=== PATIENT | female | born 1955 | race African-American/Black ===

== ENCOUNTER 2020-08-19 13:33 | Inpatient (IN) | payer OTHER, SELFPAY ==
[2020-08-19] VITALS (10 sets, daily range): BP systolic 113–210; BP diastolic 81–112; PULSE 68–90; RESP 16–22; TEMP 36.8; O2SAT 95–100; BMI 27.2
--- NOTE | 2020-08-19 | MR_ITS ---
EXAMINATION: MR ABDOMEN WITHOUT CONTRAST/MRCP CLINICAL INFORMATION: Distended edematous gallbladder with sludge and gallstones consistent with an acute cholecystitis. Dilatation of the bile duct to 1.2 cm on prior imaging. MRCP was suggested for follow up. COMPARISON: Ultrasound of abdomen 08/19/2020. CT scan abdomen and pelvis 08/19/2020. TECHNIQUE: An MRI scan of the abdomen was performed using multiple imaging sequences and imaging planes. As per the MRCP protocol, heavily T2-weighted 3-D high-resolution MRCP sequences were obtained in the coronal plane along with thin and thick slab coronal images and coronal MIP reconstructions. FINDINGS: Liver: Liver normal size and signal. No focal cystic or solid mass. Hepatic and portal veins patent. Gallbladder, Biliary Tree: The gallbladder is edematous and distended. Filling defects seen dependent gallbladder consistent with previous identified sludge and stone. The common bile duct is dilated to a diameter about 1.2 cm at the dick hepatis and remains dilated to the ampulla. No filling defects seen in the bile duct. Pancreas: No pancreatic mass or dilatation. No inflammation. The pancreatic duct is slightly prominent measuring about 2-3 mm at the head and body of the pancreas. Spleen: Normal size and appearance. Splenic vein patent. Adrenal Glands and Kidneys: Adrenal glands normal. Kidneys bilaterally symmetric in size and function. No focal mass, hydronephrosis, or perinephric stranding. Bowel Loops: Grossly within normal limits. Lymphovascular Structures: Abdominal aorta normal in caliber. No periaortic collections. No abdominal adenopathy or free fluid collection. Bones: Within normal limits to the extent included. MR/MR MRCP IMPRESSION: 1. Edematous distended gallbladder consistent with acute cholecystitis. Filling defects of sludge and stones as previously seen on prior studies. 2. Dilated CBD to a diameter of 1.2 cm. No filling defects in the bile ducts. 3. Mild prominence of the pancreatic duct. No pancreatic mass or inflammation.
--- NOTE | 2020-08-19 13:49 | ECG_ITS ---
Test Reason : ABD PAIN Blood Pressure : / mmHG Vent. Rate : 084 BPM Atrial Rate : 084 BPM P-R Int : 138 ms QRS Dur : 076 ms QT Int : 356 ms P-R-T Axes : 060 -02 000 degrees QTc Int : 420 ms Normal sinus rhythm Nonspecific ST and T wave abnormality Abnormal ECG No previous ECGs available Referred By: Estefani Dorsey Electronically Signed By:CHRISTINA RUANO MD
--- NOTE | 2020-08-19 13:50 | US_ITS ---
EXAMINATION: US ABDOMEN COMPLETE CLINICAL INFORMATION: Abdominal pain and nausea. COMPARISON: None TECHNIQUE: Real-time imaging of the abdominal viscera. FINDINGS: PANCREAS: Not well visualized due to bowel gas ABDOMINAL AORTA: The proximal, mid, and distal segments are normal in caliber. INFERIOR VENA CAVA: Visualized portions are normal. LIVER: Liver echotexture is normal. No focal liver lesion is seen. There is mild intrahepatic biliary duct dilatation. GALLBLADDER: The gallbladder is slightly enlarged measuring 11 cm in length. There is sludge and small gallstones seen in the gallbladder. Gallbladder wall appears thickened and edematous. Gallbladder wall measures 0.9 cm. The instrument technologist reports the patient is tender over the gallbladder. COMMON BILE DUCT: Normal in caliber measuring 1 cm in diameter. RIGHT KIDNEY: Normal. No hydronephrosis. No renal calculi or focal parenchymal lesions. The kidney measures 10.6 cm in maximum dimension. LEFT KIDNEY: Normal. No hydronephrosis. No renal calculi or focal parenchymal lesions. The kidney measures 12.6 cm in maximum dimension. SPLEEN: Normal. The spleen measures 9.5 cm in maximum dimension. FREE FLUID: None. US/US abdomen complete IMPRESSION: Distended gallbladder with gallstones and sludge. Thickened edematous gallbladder wall. Ultrasound appearance is concerning for acute cholecystitis. Dilated intra and extrahepatic bile ducts. Limited visualization of the pancreas.
--- NOTE | 2020-08-19 13:52 | ED.ABDPAIN ---
HPI - Abdominal Pain General Chief Complaint: Abdominal Pain Stated Complaint: ABD PAIN Time Seen by Provider: 08/19/20 13:47 Source: patient and EMS Mode of arrival: EMS History of Present Illness HPI narrative: 64-year-old female with a past medical history of arthritis, gastric bypass, presenting to the ED complaining of epigastric/upper abdominal pain since Wednesday with associated nausea. Denies fever, chills, vomiting, diarrhea, constipation, dysuria/hematuria MD elicited complaint: abdominal pain Related Data Allergies Allergy/AdvReac Type Severity Reaction Status Date / Time acetaminophen [From Percocet] Allergy Mild nausea, Verified 08/19/20 13:48 headache, dizzy oxycodone [From Percocet] Allergy Mild nausea, Verified 08/19/20 13:48 headache, dizzy Review of Systems Review of Systems Constitutional: No Weight loss, No Fever, No Chills Cardiovascular: No Chest Pain, No SOB Respiratory: No Cough, No Sputum, No Dyspnea Gastrointestinal: + Nausea, No Vomiting, No Diarrhea, No Constipation, + Abdominal pain Genitourinary: No irregular bleeding, No Dysuria, No Urinary Frequency, No Hematuria, No Flank Pain, No Urinary Flow Changes Musculoskeletal: No joint pain, No Myalgias, No Joint Swelling Skin: No Skin Lesions, No rash Neuro: No Weakness, No Headache Yes all other systems are reviewed and are negative Physical Exam Vital Signs: Vital Signs: Last Vital Signs Temp 98.2 F 08/19/20 13:50 Pulse 79 08/19/20 13:50 Resp 16 08/19/20 16:16 BP 176/105 H 08/19/20 13:50 Pulse Ox 98 08/19/20 13:50 Body Mass Index 27.2 Const: General: cooperative and healthy appearing Orientation/consciousness: patient oriented x3 Limitations: no limitations HENMT: Head: Yes normal to inspection Ears: hearing grossly normal bilaterally General nose exam: Normal external nose present Face and sinus: Yes normal facial exam Eyes: General: appearance normal, both eyes and all related structures EOM: EOMs intact bilaterally Neck: Neck: Yes normal visual inspection and Yes no meningeal signs Resp: Effort & Inspection: normal respiratory effort Cardio: Rate: regular rate GI: Inspection: Yes normal to inspection Palpation (GI): Soft to palpation, Tenderness to palpation present (GI) in the epigastrum, in the LUQ and in the RUQ, no guarding and not rigid : General: Yes no CVA tenderness Back/Spine/Pelvis: Back: no CVA tenderness Skin: Rashes: no rashes Wounds: no wounds Neuro: General: patient oriented x3 and no meningeal signs Extrem: General: Yes normal to inspection Course Course Course Narrative: Leukocytosis notable 21.8. Empiric IV Zosyn ordered UA infected 1605- ultrasound showing distended gallbladder with gallstones and sludge. Thickened edematous gallbladder wall. Ultrasound appearance is concerning for acute cholecystitis. Dilated intra and extrahepatic bile ducts. > surgery, Dr. Gallegos consulted, recommended CT for further evaluation Lactic negative. 1700--ED care transfer to [facility] pending remaining labs, CT AP and admission MDM - Abdominal Pain MDM Narrative Medical decision making narrative: 64-year-old female with a past medical history of arthritis, gastric bypass, presenting to the ED complaining of epigastric/upper abdominal pain since Wednesday with associated nausea On exam hypertensive, appears in pain, physical exam as above. Concern for pancreatitis/cholecystitis/cholelithiasis vs splenic abnormality. Rule out atypical ACS. Lower concern for diverticulitis/appendicitis or renal stone Plan: Labs, UA, abdomen ultrasound, re-evaluate Lab Data Result diagrams: 08/19/20 14:28 08/19/20 15:50 Labs: Lab Results 08/19/20 08/19/20 08/19/20 Range/Units 14:28 14:29 15:49 WBC 21.8 H (4.8-10.8) X10*3/uL RBC 4.35 (4.20-5.50) X10*6/uL Hgb 13.2 (12.0-16.0) g/dl Hct 39.4 (37-47) % MCV 90.6 (80-98) fL MCH 30.3 (27.0-33.0) pg MCHC 33.5 (31.0-35.0) g/dl RDW 13.2 (11.0-16.0) % Plt Count 94 L (160-400) X10*3/uL MPV 12.0 (9.4-12.3) fL Immature Gran % (Auto) 0.6 H (0.0-0.4) % Neut % (Auto) 93.8 H (45-73) % Lymph % (Auto) 3.0 L (20-40) % [place] % (Auto) 2.5 (2-11) % Eos % (Auto) 0.0 (0-4) % Baso % (Auto) 0.1 (0-2) % Lymph # (Auto) 0.7 L (1.2-4.9) X10*3/uL [place] # (Auto) 0.5 (0.1-1.2) X10*3/uL Eos # (Auto) 0.0 (0.0-0.4) X10*3/uL Baso # (Auto) 0.0 (0.0-0.2) X10*3/uL Abs Immat Gran (auto) 0.14 H (0.00-0.03) X10*3/uL Absolute Neuts (auto) 20.4 H (2.0-8.3) X10*3/uL Absolute Nucleated RBC 0.000 (0.0-0.012) X10*3/uL Nucleated RBC % (auto) 0.0 (0.0-0.2) /100WBC Smear Tech's Comments VERIFIED Sodium (135-145) mmol/L Potassium (3.3-5.1) mmol/L Chloride (96-108) mmol/L Carbon Dioxide (22-29) mmol/L Anion Gap (12-20) BUN (9-16) mg/dL Creatinine (0.5-1.4) mg/dL Estim Creat Clear Calc Estimated GFR Random Glucose (60-115) mg/dL Lactic Acid (0.5-2.0) mmol/L Calcium (8.4-10.2) mg/dL Magnesium (1.6-2.6) mg/dL Total Bilirubin (0.0-1.0) mg/dL Direct Bilirubin (0.0-0.5) mg/dL AST (5-31) U/L ALT (0-31) U/L Alkaline Phosphatase (39-117) U/L Troponin I High Sens (<3.5-17.0) ng/L Total Protein (6.5-8.0) g/dL Albumin (3.5-5.0) g/dL Lipase 4 L (8-78) U/L Urine Color CLARISSA Urine Appearance CLOUDY Urine pH 7.5 (5.0-8.0) Ur Specific [place] 1.015 (1.005-1.025) Urine Protein TRACE (NEG-TRACE) MG/DL Urine Glucose (UA) NEG (NEG) MG/DL Urine Ketones 40 (NEG) MG/DL Urine Blood TRACE (NEG) Urine Nitrite POS H (NEG) Ur Leukocyte Esterase TRACE H (NEG) Urine RBC 0-2 (0) /HPF Urine WBC 10-14 H (0-4) /HPF Ur Squamous Epith Cells 2+ /LPF Urine Bacteria 4+ /LPF 08/19/20 08/19/20 08/19/20 Range/Units 15:50 15:50 15:50 WBC (4.8-10.8) X10*3/uL RBC (4.20-5.50) X10*6/uL Hgb (12.0-16.0) g/dl Hct (37-47) % MCV (80-98) fL MCH (27.0-33.0) pg MCHC (31.0-35.0) g/dl RDW (11.0-16.0) % Plt Count (160-400) X10*3/uL MPV (9.4-12.3) fL Immature Gran % (Auto) (0.0-0.4) % Neut % (Auto) (45-73) % Lymph % (Auto) (20-40) % [place] % (Auto) (2-11) % Eos % (Auto) (0-4) % Baso % (Auto) (0-2) % Lymph # (Auto) (1.2-4.9) X10*3/uL [place] # (Auto) (0.1-1.2) X10*3/uL Eos # (Auto) (0.0-0.4) X10*3/uL Baso # (Auto) (0.0-0.2) X10*3/uL Abs Immat Gran (auto) (0.00-0.03) X10*3/uL Absolute Neuts (auto) (2.0-8.3) X10*3/uL Absolute Nucleated RBC (0.0-0.012) X10*3/uL Nucleated RBC % (auto) (0.0-0.2) /100WBC Smear Tech's Comments Sodium 145 (135-145) mmol/L Potassium 1.9 L* (3.3-5.1) mmol/L Chloride 122 H (96-108) mmol/L Carbon Dioxide 17 L (22-29) mmol/L Anion Gap 8 L (12-20) BUN 10 (9-16) mg/dL Creatinine 0.48 L (0.5-1.4) mg/dL Estim Creat Clear Calc 137.5 Estimated GFR > 60 Random Glucose 56 L* (60-115) mg/dL Lactic Acid 0.6 (0.5-2.0) mmol/L Calcium 4.9 L* (8.4-10.2) mg/dL Magnesium 1.2 L* (1.6-2.6) mg/dL Total Bilirubin 2.8 H (0.0-1.0) mg/dL Direct Bilirubin 2.4 H (0.0-0.5) mg/dL AST 154 H (5-31) U/L ALT 184 H (0-31) U/L Alkaline Phosphatase 126 H (39-117) U/L Troponin I High Sens < 3.5 (<3.5-17.0) ng/L Total Protein 3.9 L (6.5-8.0) g/dL Albumin 2.1 L (3.5-5.0) g/dL Lipase (8-78) U/L Urine Color Urine Appearance Urine pH (5.0-8.0) Ur Specific [place] (1.005-1.025) Urine Protein (NEG-TRACE) MG/DL Urine Glucose (UA) (NEG) MG/DL Urine Ketones (NEG) MG/DL Urine Blood (NEG) Urine Nitrite (NEG) Ur Leukocyte Esterase (NEG) Urine RBC (0) /HPF Urine WBC (0-4) /HPF Ur Squamous Epith Cells /LPF Urine Bacteria /LPF Discharge Plan Discharge Clinical Impression: Acute cholecystitis, Acute UTI Patient Disposition: Admitted As Inpatient [facility] Past Medical History Attestation statement: The following information was validated with the patient. Medical History (Updated 08/19/20 @ 16:09 by [facility] Larson) Arthritis Surgical History (Updated 08/19/20 @ 13:51 by Tami Beyer) H/O gastric bypass Social History Social History Alcohol intake: never Smoking Status: Never smoker Use of substances other than those prescribed or required for medical reasons: No Advance Directives: No Advance Directives Information Provided: No
[2020-08-19] MEDS: Magnesium Hydrox/Alum Hydrox 30 ML ORAL.SUSP PO (14:31)
[2020-08-19] MEDS: Famotidine/PF 20 MG/2 ML VIAL IVPUSH (14:31)
[2020-08-19] MEDS: 0.9 % Sodium Chloride 1,000 ML 999 ML IVCONT ×2 (14:31→16:17)
[2020-08-19 14:35] LABS: Basophils Percent Auto 0.1 % (0-2); Hematocrit 39.4 % (37-47); Hemoglobin 13.2 g/dl (12.0-16.0); Imm Gran Abs Auto 0.14 X10*3/uL (0.00-0.03); Imm Gran Pct Auto 0.6 % (0.0-0.4); Lymphocytes Absolute Auto 0.7 X10*3/uL (1.2-4.9); MANUAL DIFF FLAG SCAN; Mean Corpuscular HGB Conc 33.5 g/dl (31.0-35.0); Mean Corpuscular Hemoglobin 30.3 pg (27.0-33.0); Mean Corpuscular Volume 90.6 fL (80-98); Monocytes Absolute Auto 0.5 X10*3/uL (0.1-1.2); Monocytes Percent Auto 2.5 % (2-11); Neutrophils Absolute Auto 20.4 X10*3/uL (2.0-8.3); Neutrophils Percent Auto 93.8 % (45-73); Red Blood Count 4.35 X10*6/uL (4.20-5.50); Red Cell Distribution Width 13.2 % (11.0-16.0); SCAN SMEAR FLAG 1; White Blood Count 21.8 X10*3/uL (4.8-10.8)
[2020-08-19 14:38] LABS: Glucose Urine UA NEG (NEG); Leukocyte Esterase Urine TRACE (NEG); Nitrite Urine POS (NEG); PH 7.5 (5.0-8.0); Specific Gravity - Urine 1.015 (1.005-1.025); UACC Culture Trigger YES; Urine Blood TRACE (NEG); Urine Ketones 40 MG/DL (NEG); Urine Protein TRACE MG/DL (NEG-TRACE)
[2020-08-19 14:44] LABS: Appearance Urine CLOUDY; Color Urine AMBER
[2020-08-19 14:45] LABS: Bacteria Urine 4+ /LPF; RBC Urine 0-2 /HPF (0); Squamous Epithelial Cell Urine 2+ /LPF
[2020-08-19 15:19] LABS: Platelet Count 94 X10*3/uL (160-400)
[2020-08-19 15:20] LABS: SLIDE REVIEW VERIFIED
--- NOTE | 2020-08-19 16:05 | CT_ITS ---
EXAMINATION: CT ABDOMEN AND PELVIS WITH CONTRAST CLINICAL INFORMATION: Dilated ducts. Acute cholecystitis. COMPARISON: Ultrasound of abdomen today TECHNIQUE: Multidetector volumetric images were obtained from the superior aspect of the liver through the pubic symphysis following administration 85 mL of Omnipaque 350 intravenous contrast. Sagittal and coronal reformatted images were obtained on the technologist's workstation. Oral contrast: No This CT examination was performed using dose optimization techniques as appropriate, variously including the following: *Automated exposure control *Adjustment of mA and/or kV according to patient size (this includes techniques or standardized protocols for targeted exams where dose is matched to indication/reason for exam; i.e. extremities or head) *Use of iterative reconstruction technique DLP: 670 mGy-cm FINDINGS: LUNG BASES: The visualized lung bases are unremarkable. LIVER, GALLBLADDER, AND BILIARY TREE: The liver is normal in size, shape, and attenuation. No focal hepatic lesion or biliary ductal dilatation is present. The gallbladder is distended. The wall of the gallbladder is edematous and thickened. Small volume of high density material layering dependently consistent with sludge. There is a small calcified gallstone in the sludge. Findings consistent with an acute cholecystitis. The extrahepatic CBD is dilated to a diameter of 1.2 cm. This continues down into the head of the pancreas. No calcified stone seen in the bile ducts. PANCREAS: Slight dilatation of the pancreatic duct to about 2 mm at the head of the pancreas. No inflammation of the pancreas. No pancreatic mass. SPLEEN: Unremarkable. ADRENAL GLANDS: Unremarkable. KIDNEYS AND URETERS: The kidneys are normal in size, shape, and attenuation. No hydronephrosis, hydroureter, or calculi seen. No perinephric stranding. BLADDER: Unremarkable. GASTROINTESTINAL TRACT: There are multiple scattered diverticula of the colon. There is no diverticulitis. There is no bowel wall thickening /edema. There is no bowel obstruction. There is a moderate volume of stool in the colon. The appendix is normal . Status post gastric bypass surgery. No acute change of the stomach or small bowel. There is no hiatal hernia. ABDOMINAL WALL: No significant hernia is appreciated. LYMPH NODES: Normal. VASCULAR: Scattered vascular calcifications of aorta and iliac arteries. There is no aneurysm. PELVIC VISCERA: Unremarkable. OSSEOUS STRUCTURES: Multilevel degenerative spondylosis of the spine. CT/CT abdomen pelvis w con IMPRESSION: 1. Distended edematous gallbladder with sludge and gallstones consistent with an acute cholecystitis. There is dilatation of the CBD to a diameter of 1.2 cm. No calcified stone seen in the bile ducts. MRCP may be helpful for further evaluation. 2. Slight dilatation of the pancreatic duct to 2 mm patellar edema or mass of the pancreas. 3. Status post gastric bypass surgery. 4. Diverticulosis of the colon. No acute abnormality of the bowel.
[2020-08-19] MEDS: Piperacillin Sodium/Tazobactam 3.375 GM in 0.9 % Sodium Chloride 50 ML IV ×2 (16:07→22:18)
[2020-08-19] MEDS: Morphine Sulfate 4 MG/ML CARTRIDGE 2 MG IVPUSH (16:16)
[2020-08-19 16:19] LABS: Lactic Acid 0.6 mmol/L (0.5-2.0)
[2020-08-19 16:23] LABS: Lipase 4 U/L (8-78)
[2020-08-19 16:27] LABS: Troponin-I High Sensitivity < 3.5 ng/L (<3.5-17.0)
[2020-08-19 16:54] LABS: Alanine Aminotransferase 184 U/L (0-31); Albumin Level 2.1 g/dL (3.5-5.0); Alkaline Phosphatase 126 U/L (39-117); Anion Gap 8 (12-20); Aspartate Amino Transferase 154 U/L (5-31); Bilirubin Direct 2.4 mg/dL (0.0-0.5); Bilirubin Total 2.8 mg/dL (0.0-1.0); Blood Urea Nitrogen 10 mg/dL (9-16); Calcium 4.9 mg/dL (8.4-10.2); Carbon Dioxide 17 mmol/L (22-29); Chloride 122 mmol/L (96-108); Creatinine Clr Calc Pharmacy 137.5; Estimated Glomerular Filt Rate > 60; Glucose Random 56 mg/dL (60-115); Magnesium 1.2 mg/dL (1.6-2.6); Potassium 1.9 mmol/L (3.3-5.1); Sodium 145 mmol/L (135-145); Total Protein 3.9 g/dL (6.5-8.0)
[2020-08-19] MEDS: iohexoL 350 MG/ML 100 ML INFUS..BTL IV (17:11)
--- NOTE | 2020-08-19 17:39 | P.HPGS_ITS ---
History of Present Illness History of Present Illness Date of Service: 08/20/20 Chief complaint: Acute cholecystitis elevated LFTs Narrative: Evelyne Wahl is a 64 year old female who says she has been having pain on the right side of her abdomen since Wednesday which is about 3 days ago. S he says this had persisted over the weekend so she decided to come to the ED today. She describes having some nausea at home but denies any vomitting. She denies any similar episodes in the past. She denies any fever or chills. She had imaging studies in the ED showing acute cholecysititis. She seems to be otherwise healthy. She denies medical problems except for arthritis. She says she had gastric bypass surgery in [facility] about 12 years ago and says she may have lost about 120 lbs that time. Review of Systems Constitutional: Constitutional: Denies chills and Denies fever(s) Cardiovascular: Cardiovascular: Denies chest pain, Denies dyspnea and Denies dyspnea on exertion Respiratory: Respiratory: Denies cough, Denies dyspnea and Denies dyspnea on exertion Gastrointestinal: Gastrointestinal: Denies hematochezia and Denies change in bowel habits Genitourinary: Genitourinary: Denies hematuria Musculoskeletal: Musculoskeletal: Denies back pain and Denies limited range of motion Neurologic: Denies focal weakness and Denies convulsions Psychiatric: Psychiatric: Denies depression and Denies mood swings PMFSH Past Medical History Medical History Arthritis Surgical History Surgical History H/O gastric bypass H/O total knee replacement Hx of tubal ligation Social History Social History Alcohol intake: never Smoking Status: Never smoker Use of substances other than those prescribed or required for medical reasons: No Advance Directives: No Advance Directives Information Provided: No Meds Allergies Allergy/AdvReac Type Severity Reaction Status Date / Time acetaminophen [From Percocet] Allergy Mild nausea, Verified 08/19/20 13:48 headache, dizzy oxycodone [From Percocet] Allergy Mild nausea, Verified 08/19/20 13:48 headache, dizzy Home Medications Medication Instructions Recorded Confirmed Type gabapentin 1 cap PO TID 08/19/20 08/19/20 History meloxicam 1 tab PO DAILY 08/19/20 08/19/20 History Physical Exam Vital Signs: Vital Signs: Last Vital Signs Temp 98.2 F 08/19/20 13:50 Pulse 79 08/19/20 13:50 Resp 16 08/19/20 16:16 BP 176/105 H 08/19/20 13:50 Pulse Ox 98 08/19/20 13:50 Body Mass Index 27.2 Const: General: comfortable and no acute distress Orientation/consciousness: patient oriented x3 Neck: Neck: Yes no lymphadenopathy Resp: Auscultation: clear to auscultation bilaterally Cardio: Rhythm: regular rhythm GI: Other: some tenderness on the RUQ, no guarding or tenderness Palpation (GI): Soft to palpation, nontender and no guarding Neuro: General: patient oriented x3 Results Results Labs: Short CBC 08/19/20 Range/Units 14:28 WBC 21.8 H (4.8-10.8) X10*3/uL Hgb 13.2 (12.0-16.0) g/dl Hct 39.4 (37-47) % Plt Count 94 L (160-400) X10*3/uL BMP 08/19/20 15:50 Sodium 145 Potassium 1.9 L* Chloride 122 H Carbon Dioxide 17 L BUN 10 Creatinine 0.48 L Calcium 4.9 L* Liver Function 08/19/20 Range/Units 15:50 Total Bilirubin 2.8 H (0.0-1.0) mg/dL Direct Bilirubin 2.4 H (0.0-0.5) mg/dL AST 154 H (5-31) U/L ALT 184 H (0-31) U/L Alkaline Phosphatase 126 H (39-117) U/L Albumin 2.1 L (3.5-5.0) g/dL Urine 08/19/20 Range/Units 14:29 Urine Color CLARISSA Urine Appearance CLOUDY Urine pH 7.5 (5.0-8.0) Ur Specific [place] 1.015 (1.005-1.025) Urine Protein TRACE (NEG-TRACE) MG/DL Urine Glucose (UA) NEG (NEG) MG/DL Assessment and Plan (1) Acute cholecystitis: Status: Acute I have reviewed her US and CT scan images. The gallbladder wall is markedly thickened. There is some suggestion of ductal dilatation so I am going to order for an MRI. I will start her on IV Zosyn. Her K will need to be replaced. She can have PO potassium as well. We will trend her bilirubin as this is elevated. I did explain to her that if her CBD is clear of stones, we have the option of proceeding with lap cholecystectomy and possible open. I briefly explained to her the technique of this procedure along with the risks, benefits and alternatives. I also explained to her the option of treatment with IVF abx as the way the GB looks, there is a high chance of converting to open. She otherwise looks comfortable now. She is nontoxic looking and her lactate is low. I will consult the hospitalist in view of her low K. I have ordered for PO K 40 meq x 3 doses. Her UA also shows a UTI. This should b covered by IV Zosyn.
[2020-08-19] MEDS: Potassium Chloride ER 20 MEQ TAB.ER.PRT 60 MEQ PO (17:46)
[2020-08-19] MEDS: Calcium Gluconate/NaCl,Iso-Osm 1 GM/50 ML PLAST..BAG IV (17:46)
--- NOTE | 2020-08-19 18:41 | PC.NURSE ---
pt to mri at this time
--- NOTE | 2020-08-19 19:35 | P.CONIM_ITS ---
History of Present Illness Data of Consult Service Date: 08/19/20 Requesting physician: Link Gallegos Primary Care Provider: Khurram Knox MD HPI Reason for consult: Medical Management 64 year old women admitted by general surgery. She presented to the ED with right sided abdominal pain that started on Wednesday. She also had some nausea without vomiting. She denied fever, chills. Abdominal CT and ultrasound showed acute cholecystitis. She was noted to have Leukocytosis, magnesium 1.2, glucose 56 and potassium 1.9. she received IV fluids, IV Pepcid, Zosyn, morphine, oral potassium, IV magnesium and calcium gluconate as well as morphine for pain. Review of Systems Review of Systems: Denies any recent fever chills or decrease in appetite respiratory denies any shortness of breath coverage production cardiovascular is adjustment of any PND or edema gastrointestinal denies any dysphagia abdominal pain nausea vomiting or diarrhea genitourinary denies any dysuria frequency or hematuria musculoskeletal denies any joint pain or swelling neuropsych denies any weakness or seizures all other systems reviewed are negative [facility] Medical History Arthritis Surgical History H/O gastric bypass H/O total knee replacement Hx of tubal ligation Social History Alcohol intake: never Smoking Status: Never smoker Use of substances other than those prescribed or required for medical reasons: No Advance Directives: No Advance Directives Information Provided: No Meds Allergies Allergy/AdvReac Type Severity Reaction Status Date / Time acetaminophen [From Percocet] Allergy Mild nausea, Verified 08/19/20 13:48 headache, dizzy oxycodone [From Percocet] Allergy Mild nausea, Verified 08/19/20 13:48 headache, dizzy Physical Exam Vital Signs and Narrative: Vital Signs: Last Vital Signs Temp 98.2 F 08/19/20 13:50 Pulse 82 08/19/20 17:46 Resp 16 08/19/20 17:46 BP 177/102 H 08/19/20 17:46 Pulse Ox 98 08/19/20 17:46 Body Mass Index 27.2 Appearing in no acute distress head is normocephalic atraumatic eyes pupils are PERRLA sclera is anicteric mouth throat mucous membranes are intact and moist neck is supple no lymphadenopathy, no JVD noted lung sounds are clear to auscultation heart regular rate rhythm, clear S1, S2 positive bowel sounds, abdomen is soft, nontender neuro patient is alert x3, no focal deficits Results Labs CBC and Chem 7: 08/19/20 14:28 08/19/20 15:50 Labs: Laboratory Results - last 24 hr 08/19/20 08/19/20 08/19/20 14:28 14:29 15:49 MCV 90.6 MCH 30.3 MCHC 33.5 RDW 13.2 Plt Count 94 L MPV 12.0 Immature Gran % (Auto) 0.6 H Neut % (Auto) 93.8 H Lymph % (Auto) 3.0 L Monroe % (Auto) 2.5 Eos % (Auto) 0.0 Baso % (Auto) 0.1 Lymph # (Auto) 0.7 L Monroe # (Auto) 0.5 Eos # (Auto) 0.0 Baso # (Auto) 0.0 Abs Immat Gran (auto) 0.14 H Absolute Neuts (auto) 20.4 H Absolute Nucleated RBC 0.000 Nucleated RBC % (auto) 0.0 Smear Tech's Comments VERIFIED Hold Blue Top Anion Gap Estim Creat Clear Calc Estimated GFR Random Glucose Lactic Acid Calcium Magnesium Total Bilirubin Direct Bilirubin AST ALT Alkaline Phosphatase Troponin I High Sens Total Protein Albumin Lipase 4 L Urine Color CLARISSA Urine Appearance CLOUDY Urine pH 7.5 Ur Specific [place] 1.015 Urine Protein TRACE Urine Glucose (UA) NEG Urine Ketones 40 Urine Blood TRACE Urine Nitrite POS H Ur Leukocyte Esterase TRACE H Urine RBC 0-2 Urine WBC 10-14 H Ur Squamous Epith Cells 2+ Urine Bacteria 4+ 08/19/20 08/19/20 08/19/20 15:50 15:50 15:50 MCV MCH MCHC RDW Plt Count MPV Immature Gran % (Auto) Neut % (Auto) Lymph % (Auto) Monroe % (Auto) Eos % (Auto) Baso % (Auto) Lymph # (Auto) Monroe # (Auto) Eos # (Auto) Baso # (Auto) Abs Immat Gran (auto) Absolute Neuts (auto) Absolute Nucleated RBC Nucleated RBC % (auto) Smear Tech's Comments Hold Blue Top SEE NOTE Anion Gap 8 L Estim Creat Clear Calc 137.5 Estimated GFR > 60 Random Glucose 56 L* Lactic Acid Calcium 4.9 L* Magnesium 1.2 L* Total Bilirubin 2.8 H Direct Bilirubin 2.4 H AST 154 H ALT 184 H Alkaline Phosphatase 126 H Troponin I High Sens < 3.5 Total Protein 3.9 L Albumin 2.1 L Lipase Urine Color Urine Appearance Urine pH Ur Specific [place] Urine Protein Urine Glucose (UA) Urine Ketones Urine Blood Urine Nitrite Ur Leukocyte Esterase Urine RBC Urine WBC Ur Squamous Epith Cells Urine Bacteria 08/19/20 15:50 MCV MCH MCHC RDW Plt Count MPV Immature Gran % (Auto) Neut % (Auto) Lymph % (Auto) Monroe % (Auto) Eos % (Auto) Baso % (Auto) Lymph # (Auto) Monroe # (Auto) Eos # (Auto) Baso # (Auto) Abs Immat Gran (auto) Absolute Neuts (auto) Absolute Nucleated RBC Nucleated RBC % (auto) Smear Tech's Comments Hold Blue Top Anion Gap Estim Creat Clear Calc Estimated GFR Random Glucose Lactic Acid 0.6 Calcium Magnesium Total Bilirubin Direct Bilirubin AST ALT Alkaline Phosphatase Troponin I High Sens Total Protein Albumin Lipase Urine Color Urine Appearance Urine pH Ur Specific [place] Urine Protein Urine Glucose (UA) Urine Ketones Urine Blood Urine Nitrite Ur Leukocyte Esterase Urine RBC Urine WBC Ur Squamous Epith Cells Urine Bacteria Imaging Radiologist's Impressions: Impressions Abdomen Ultrasound 08/19/20 13:50 IMPRESSION: Distended gallbladder with gallstones and sludge. Thickened edematous gallbladder wall. Ultrasound appearance is concerning for acute cholecystitis. Dilated intra and extrahepatic bile ducts. Limited visualization of the pancreas. Abdomen/Pelvis CT 08/19/20 16:05 IMPRESSION: 1. Distended edematous gallbladder with sludge and gallstones consistent with an acute cholecystitis. There is dilatation of the CBD to a diameter of 1.2 cm. No calcified stone seen in the bile ducts. MRCP may be helpful for further evaluation. 2. Slight dilatation of the pancreatic duct to 2 mm patellar edema or mass of the pancreas. 3. Status post gastric bypass surgery. 4. Diverticulosis of the colon. No acute abnormality of the bowel. Assessment and Plan (1) Acute cholecystitis: Status: Acute 64-year-old woman admitted by General surgery, found to have acute cholecystitis and multiple electrolyte abnormalities likely from poor appetite and dehydration. Acute cholecystitis. Management as per surgical team. Continue IV Zosyn, IV fluids, NPO, pain management. MRI pending. Hypokalemia, hypoglycemia, hypomagnesemia, hypocalcemia. Likely from poor appetite over last few days. Repleted in the ER. Repeat BMP this evening and replete as necessary. Elevated blood pressure reading. No history of high blood pressure. Likely related to abdominal pain. Monitor closely. Leukocytosis. Related to acute cholecystitis. Continue IV antibiotics. Transaminitis. Related to acute cholecystitis. Follow LFTS. DVT prophylaxis with mechanical compression boots. Discussed with Dr. Lara Full code
[2020-08-19] MEDS: Magnesium Sulfate/H2O 2 GM/50 ML PIGGYBACK IV (20:26)
--- NOTE | 2020-08-19 20:30 | PC.NURSE ---
potassium 40meq in 100mls is not in the scope of practice for this pt in the ed with no central line. order entered in error provider made aware.
[2020-08-19] MEDS: Lactated Ringers 1,000 ML 100 ML IVCONT (22:04)
[2020-08-19] MEDS: Potassium Chloride Packet 20 MEQ PACKET 40 MEQ PO (22:18)
[2020-08-19] MEDS: ondansetron HCL 4 MG/2 ML VIAL IVPUSH (22:25)
[2020-08-19] MEDS: Morphine Sulfate 2 MG/ML CARTRIDGE IVPUSH (22:25)
--- NOTE | 2020-08-19 22:59 | PC.NURSE ---
pt refusing to finish the potassium po klor con due to its too sweet, pt was nausea and treated for nausea and still not wanting to drink the rest. pt only consumed a couple of sips. provider made aware.
[2020-08-19 23:51] LABS: Anion Gap 14 (12-20); Blood Urea Nitrogen 10 mg/dL (9-16); Calcium 8.3 mg/dL (8.4-10.2); Carbon Dioxide 23 mmol/L (22-29); Chloride 106 mmol/L (96-108); Creatinine Clr Calc Pharmacy 84.6; Estimated Glomerular Filt Rate > 60; Glucose Random 89 mg/dL (60-115); Potassium 3.6 mmol/L (3.3-5.1); Sodium 139 mmol/L (135-145)
[2020-08-20] VITALS (11 sets, daily range): BP systolic 137–188; BP diastolic 75–98; PULSE 60–94; RESP 16–20; TEMP 35.9–36.3; O2SAT 95–100
[2020-08-20] MEDS: amLODIPine Besylate 2.5 MG TABLET PO (00:13)
[2020-08-20] MEDS: HYDROmorphone HCl 0.5 MG/0.5 ML SYRINGE IVPUSH ×3 (00:19→19:30)
[2020-08-20] MEDS: Piperacillin Sodium/Tazobactam 3.375 GM in 0.9 % Sodium Chloride 50 ML IV ×4 (06:04→22:09)
[2020-08-20 06:06] LABS: Hematocrit 31.8 % (37-47); Hemoglobin 10.9 g/dl (12.0-16.0); Mean Corpuscular HGB Conc 34.3 g/dl (31.0-35.0); Mean Corpuscular Hemoglobin 30.8 pg (27.0-33.0); Mean Corpuscular Volume 89.8 fL (80-98); Mean Platelet Volume 12.3 fL (9.4-12.3); Platelet Count 77 X10*3/uL (160-400); Red Blood Count 3.54 X10*6/uL (4.20-5.50); Red Cell Distribution Width 13.3 % (11.0-16.0); White Blood Count 13.9 X10*3/uL (4.8-10.8)
[2020-08-20 06:31] LABS: Magnesium 2.2 mg/dL (1.6-2.6)
[2020-08-20 06:35] LABS: Alanine Aminotransferase 230 U/L (0-31); Albumin Level 3.2 g/dL (3.5-5.0); Alkaline Phosphatase 202 U/L (39-117); Anion Gap 13 (12-20); Aspartate Amino Transferase 147 U/L (5-31); Bilirubin Direct 1.6 mg/dL (0.0-0.5); Bilirubin Total 2.1 mg/dL (0.0-1.0); Blood Urea Nitrogen 9 mg/dL (9-16); Carbon Dioxide 23 mmol/L (22-29); Chloride 106 mmol/L (96-108); Creatinine Clr Calc Pharmacy 85.7; Estimated Glomerular Filt Rate > 60; Glucose Random 86 mg/dL (60-115); Lipase 4 U/L (8-78); Potassium 3.6 mmol/L (3.3-5.1); Sodium 138 mmol/L (135-145); Total Protein 6.3 g/dL (6.5-8.0)
--- NOTE | 2020-08-20 09:52 | P.PNGS_ITS ---
Subjective Subjective Date of Service: 08/20/20 <Sharona Carpenter PA-C - Last Filed: 08/20/20 09:58> 08/20/20 <Link Gallegos MD - Last Filed: 08/20/20 10:51> Interval history: Feels a little better. Still having RUQ pain but medication alleviating. <Sharona Carpenter PA-C - Last Filed: 08/20/20 09:58> Physical Exam Vital Signs: Vital Signs: Last Vital Signs Temp 98.2 F 08/19/20 13:50 Pulse 81 08/20/20 06:06 Resp 20 08/20/20 06:06 BP 146/84 H 08/20/20 06:06 Pulse Ox 96 08/20/20 06:06 Body Mass Index 27.2 <BELINDA Vasquez Last Filed: 08/20/20 09:58> Const: General: comfortable, no acute distress and alert <Sharona Carpenter PA-C - Last Filed: 08/20/20 09:58> Orientation/consciousness: patient oriented x3 <Sharona Carpenter PA-C - Last Filed: 08/20/20 09:58> Eyes: Sclerae: sclerae normal <BELINDA Vasquez Last Filed: 08/20/20 09:58> Resp: Effort & Inspection: normal respiratory effort <BELINDA Vasquez Last Filed: 08/20/20 09:58> Cardio: Rate: regular rate <BELINDA Vasquez Last Filed: 08/20/20 09:58> GI: Inspection: No distended <BELINDA Vasquez Last Filed: 08/20/20 09:58> Palpation (GI): Soft to palpation, Tenderness to palpation present (GI) in the RUQ; Pfeiffer's sign negative, no guarding and not rigid <BELINDA Vasquez Last Filed: 08/20/20 09:58> Skin: General skin exam: no rashes or lesions noted <BELINDA Vasquez Last Filed: 08/20/20 09:58> Neuro: General: patient oriented x3 <Sharona Carpenter PA-C - Last Filed: 08/20/20 09:58> Extrem: General: Yes no clubbing, cyanosis or edema <BELINDA Vasquez Last Filed: 08/20/20 09:58> Progress Note: A&P Assessment and plan (1) Acute cholecystitis: Status: Acute <Sharona Carpenter PA-C - Last Filed: 08/20/20 09:58> Assessment and Plan: Feeling a little better but RUQ pain persists. VSS. Abd exam- soft, nondistended, RUQ tender. WBC improved this am. Patient unsure if she wants to proceed with cholecystectomy versus continuing with IV abx and observation. If pain persists tomorrow, likely will need to proceed with CCY during this stay. Will cont to monitor, NPO after midnight in preparation. Can have full liquids today. Cont IV zosyn, IVF. Repeat labs in am. <Sharona Carpenter PA-C - Last Filed: 08/20/20 09:58> Feels better Still has pain however although improved No fever Looks comfortable Tender in the right upper quadrant White count much lower LFTs improving MRI showing dilated ducts with no obvious filling defect GI consult -discuss with Dr. Arias Possible lap jaquan tomorrow Patient seen and examined - agree with KIN Carpenter <Link Gallegos MD - Last Filed: 08/20/20 10:51> (2) Acute UTI: Status: Acute <Sharona Carpenter PA-C - Last Filed: 08/20/20 09:58> Assessment and Plan: On IV zosyn. <Sharona Carpenter PA-C - Last Filed: 08/20/20 09:58> (3) Elevated LFTs: Status: Acute <Sharona Carpenter PA-C - Last Filed: 08/20/20 09:58> Assessment and Plan: MRCP- dilated CBD but negative for filling defect, bili downtrending. Likely with passed stone. Cont to trend LFTs. If continues to improve, possible CCY tomorrow. <Sharona Carpenter PA-C - Last Filed: 08/20/20 09:58> Fall Risk Details Current Medications: Current Medications Generic Name Dose Route Start Last Admin Trade Name Freq PRN Reason Stop Dose Admin Gabapentin 100 mg 08/20/20 09:00 Gabapentin 100 Mg Capsule PO TID MAURICE Hydromorphone HCl 0.5 mg 08/20/20 00:04 08/20/20 00:19 Hydromorphone Hcl 0.5 Mg/0.5 Ml Syringe IVPUSH 0.5 mg Q4H PRN Administration Breakthrough Pain Lactated Ringer's 1,000 mls @ 60 mls/hr 08/19/20 18:00 08/20/20 05:53 Lr IVCONT Not Given .[id number] MAURICE Piperacillin Sod/Tazobactam 50 mls @ 100 mls/hr 08/19/20 22:00 08/20/20 06:04 Sod 3.375 gm/ Sodium Chloride IV 100 mls/hr Q6H MAURICE Administration Cefotetan Disodium 2 gm in 50 mls @ 100 mls/hr 08/21/20 09:27 Cefotan IV 08/21/20 09:56 PREOP ONE Morphine Sulfate 2 mg 08/19/20 18:04 08/19/20 22:25 Morphine Sulfate 2 Mg/Ml Cartridge IVPUSH 2 mg Q4H PRN Administration Pain, Severe (Pain Scale 7-10) Ondansetron HCl 4 mg 08/19/20 17:54 Ondansetron Hcl 4 Mg/2 Ml Vial IVPUSH Q8H PRN nausea Ondansetron HCl 4 mg 08/19/20 20:39 08/19/20 22:25 Ondansetron Hcl 4 Mg/2 Ml Vial IVPUSH 4 mg Q6H PRN Administration Nausea Oxycodone HCl 5 mg 08/20/20 08:42 Oxycodone Hcl Immed Release 5 Mg Tablet PO Q4H PRN Pain, Mild (Pain Scale 1-3) Sodium Chloride 3 ml 08/20/20 00:00 08/20/20 04:16 0.9 % Sodium Chloride Flush 3 Ml Syringe IVFLUSH Not [facility] <Sharona Carpenter PA-C - Last Filed: 08/20/20 09:58> Time Spent With Patient Time: Total time spent is greater than 50% in coordination of care (as documented) at patient's floor/unit and/or counseling patient: <Sharona Carpenter PA-C - Last Filed: 08/20/20 09:58> Time with patient: 15 - 24 minutes <Sharona Carpenter PA-C - Last Filed: 08/20/20 09:58>
[2020-08-20] MEDS: 0.9 % Sodium Chloride Flush 3 ML SYRINGE IVFLUSH (09:53)
[2020-08-20] MEDS: Gabapentin 100 MG CAPSULE PO ×3 (09:53→22:10)
[2020-08-20 10:34] LABS: COVID-19 Test Negative (Negative)
--- NOTE | 2020-08-20 12:15 | MHC.CM.PN ---
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 Pt offered HCP, pt denies having one and reports she would like assistance with this, CM to complete with pt later today. Discharge Plan: Home self-care with to transport.
--- NOTE | 2020-08-20 13:00 | HO.PM.IMPN ---
Subjective Subjective Date of Service: 08/20/20 Interval History: improved Cardiovascular Cardiovascular: Reports no additional cardiovascular complaints Respiratory Respiratory: Reports no additional respiratory complaints Physical Exam Vital Signs: Vital Signs: Last Vital Signs Temp 98.2 F 08/19/20 13:50 Pulse 66 08/20/20 10:05 Resp 20 08/20/20 06:06 BP 140/89 H 08/20/20 10:05 Pulse Ox 96 08/20/20 06:06 Body Mass Index 27.2 General: AO X 3, no acute distress Resp: CTA bilateral CVS: S1,S2,RRR GI: soft, non tender, non distended Neuro: motor grossly intact Psych: appropriate affect Objective Data Current Medications Generic Name Dose Route Start Last Admin Trade Name Freq PRN Reason Stop Dose Admin Gabapentin 100 mg 08/20/20 09:00 08/20/20 09:53 Gabapentin 100 Mg Capsule PO 100 mg TID MAURICE Administration Hydromorphone HCl 0.5 mg 08/20/20 00:04 08/20/20 10:26 Hydromorphone Hcl 0.5 Mg/0.5 Ml Syringe IVPUSH 0.5 mg Q4H PRN Administration Breakthrough Pain Lactated Ringer's 1,000 mls @ 60 mls/hr 08/19/20 18:00 08/20/20 05:53 Lr IVCONT Not Given .[id number] MAURICE Piperacillin Sod/Tazobactam 50 mls @ 100 mls/hr 08/19/20 22:00 08/20/20 12:01 Sod 3.375 gm/ Sodium Chloride IV Infused Q6H MAURICE Infusion Cefotetan Disodium 2 gm in 50 mls @ 100 mls/hr 08/21/20 09:27 Cefotan IV 08/21/20 09:56 PREOP ONE Morphine Sulfate 2 mg 08/19/20 18:04 08/19/20 22:25 Morphine Sulfate 2 Mg/Ml Cartridge IVPUSH 2 mg Q4H PRN Administration Pain, Severe (Pain Scale 7-10) Ondansetron HCl 4 mg 08/19/20 17:54 Ondansetron Hcl 4 Mg/2 Ml Vial IVPUSH Q8H PRN nausea Ondansetron HCl 4 mg 08/19/20 20:39 08/19/20 22:25 Ondansetron Hcl 4 Mg/2 Ml Vial IVPUSH 4 mg Q6H PRN Administration Nausea Oxycodone HCl 5 mg 08/20/20 08:42 Oxycodone Hcl Immed Release 5 Mg Tablet PO Q4H PRN Pain, Mild (Pain Scale 1-3) Sodium Chloride 3 ml 08/20/20 00:00 08/20/20 09:53 0.9 % Sodium Chloride Flush 3 Ml Syringe IVFLUSH 3 ml QSHIFT MAURICE Administration Labs CBC & Chem 7: 08/20/20 06:00 08/20/20 06:00 Microbiology Microbiology Results: Microbiology 08/19/20 00:00 Urine clean catch - Clean Catch Midstream Urine Culture - Preliminary Gram negative flash 08/19/20 15:50 Blood - Venous Blood Culture - Preliminary 08/19/20 15:53 Blood - Venous Blood Culture - Preliminary Assessment and Plan (1) Acute cholecystitis: Status: Acute Assessment and Plan: 64F presented with abd pain acute cholecystitis with bacteremia -GNR continue zosyn ? plan for CCY
[2020-08-20] MEDS: Lactated Ringers 1,000 ML 100 ML IVCONT (14:00)
--- NOTE | 2020-08-20 14:12 | PM.EVENT ---
Event Note Date of Service: 08/20/20 Event Note: GI consult dictated Elevated lfts may be secondary to acute cholecystitis. MRI shows no definite CBD stone, so would not recommend ERCP at this time. Monitor LFTs, ccy per Dr Gallegos.
--- NOTE | 2020-08-20 16:44 | W.PM.IDCN ---
History of Present Illness Data of Consult Service Date: 08/20/20 Requesting physician: Harvinder Frank Primary Care Provider: Khurram Knox MD [facility] Reason for consult: bacteremia,sepsis She presents with 3 days epigastric discomfort,7/10 radiating to back She has CT scan shows probable cholecystitis She had no fever or chills at this time but leukocytosis Review of Systems Gastrointestinal: Gastrointestinal: Reports abdominal pain and Reports dyspepsia PMFSH Past Medical History Medical History Arthritis Family History Family history: reviewed and not pertinent Surgical History Surgical History H/O gastric bypass H/O total knee replacement Hx of tubal ligation Social History Social History Alcohol intake: never Smoking Status: Never smoker Use of substances other than those prescribed or required for medical reasons: No Advance Directives: No Advance Directives Information Provided: No service: No Current occupational status: retired [employer] Allergies Allergy/AdvReac Type Severity Reaction Status Date / Time acetaminophen [From Percocet] Allergy Mild nausea, Verified 08/19/20 13:48 headache, dizzy oxycodone [From Percocet] Allergy Mild nausea, Verified 08/19/20 13:48 headache, dizzy Home Medications Medication Instructions Recorded Confirmed Type gabapentin 1 cap PO TID 08/19/20 08/19/20 History meloxicam 1 tab PO DAILY 08/19/20 08/19/20 History Physical Exam Vital Signs: Vital Signs: Last Vital Signs Temp 98.2 F 08/19/20 13:50 Pulse 66 08/20/20 10:05 Resp 20 08/20/20 06:06 BP 140/89 H 08/20/20 10:05 Pulse Ox 96 08/20/20 06:06 Body Mass Index 27.2 Const: General: cooperative Orientation/consciousness: patient oriented x3 HENMT: Head: Yes normal to inspection Mouth: Normal oral and palatal mucosa present Eyes: General: appearance normal, both eyes and all related structures Resp: Effort & Inspection: normal respiratory effort Cardio: Rate: regular rate Rhythm: regular rhythm GI: Palpation (GI): Soft to palpation and Tenderness to palpation present (GI) in the epigastrum : General: Yes no CVA tenderness Back/Spine/Pelvis: Back: no CVA tenderness Skin: General skin exam: no rashes or lesions noted Neuro: General: patient oriented x3 Extrem: General: Yes normal to inspection Assessment and Plan (1) Acute cholecystitis: Problem details: Likely gram negative rods related to cholecystitis This can be E coli,Klebsiella No urinary symptoms Status: Acute Zosyn is good plan and covers all organisms likely Surgery evaluation cholecystectomy (2) Elevated LFTs: Status: Acute Results Labs CBC & Chem 7: 08/20/20 06:00 08/20/20 06:00 Labs: Short CBC 08/20/20 Range/Units 06:00 WBC 13.9 H (4.8-10.8) X10*3/uL Hgb 10.9 L (12.0-16.0) g/dl Hct 31.8 L (37-47) % Plt Count 77 L (160-400) X10*3/uL BMP 08/19/20 08/19/20 08/20/20 15:50 23:17 06:00 Sodium 145 139 138 Potassium 1.9 L* 3.6 D 3.6 Chloride 122 H 106 106 Carbon Dioxide 17 L 23 23 BUN 10 10 9 Creatinine 0.48 L 0.78 0.77 Calcium 4.9 L* 8.3 L D 8.0 L Liver Function 08/19/20 08/20/20 Range/Units 15:50 06:00 Total Bilirubin 2.8 H 2.1 H (0.0-1.0) mg/dL Direct Bilirubin 2.4 H 1.6 H (0.0-0.5) mg/dL AST 154 H 147 H (5-31) U/L ALT 184 H 230 H (0-31) U/L Alkaline Phosphatase 126 H 202 H D (39-117) U/L Albumin 2.1 L 3.2 L D (3.5-5.0) g/dL Microbiology Microbiology Results: Microbiology 08/19/20 00:00 Urine clean catch - Clean Catch Midstream Urine Culture - Preliminary Gram negative flash 08/19/20 15:50 Blood - Venous Blood Culture - Preliminary 08/19/20 15:53 Blood - Venous Blood Culture - Preliminary
--- NOTE | 2020-08-20 16:50 | CONS_ITS ---
DATE OF SERVICE: 08/20/2020 REFERRING PHYSICIAN: Link Gallegos MD REASON FOR CONSULTATION: Elevated liver function tests and gallstones. HISTORY OF PRESENT ILLNESS: The patient is a pleasant 64-year-old woman, admitted to the hospital after presenting to the emergency room yesterday with complaints of abdominal pain. She states the pain began 3 days prior to admission when she thought she had eaten something might cause food poisoning. The pain was present in the epigastric area and waxed and waned over the weekend and was associated with nausea and dry heaves. She also said she had chills and took her temperature, which was not elevated. She presented to the emergency room and was evaluated with laboratory studies showing elevated liver function tests. Subsequently, she underwent CT scanning, abdominal ultrasound imaging, and MR imaging, which showed the common duct measuring between 10 to 12 mm, but with no obvious filling defects. Changes of acute cholecystitis were noted. She has been started on antibiotics. Liver function tests improved somewhat overnight and she reports her pain is being managed with pain medications. PAST MEDICAL HISTORY: 1. Arthritis. 2. Knee replacement on the right. 3. Gastric bypass surgery. 4. Gallstones. 5. Tubal ligation. CURRENT MEDICATIONS: Her current medication list is reviewed in the chart. ALLERGIES: INCLUDE PERCOCET. FAMILY HISTORY: This is reviewed with the patient and is noncontributory. SOCIAL HISTORY: There is no current tobacco, alcohol, or substance abuse. REVIEW OF SYSTEMS: SKIN: No pruritus. HEENT: Negative. CARDIOPULMONARY: She denies shortness of breath or chest pain. GASTROINTESTINAL: As above. GENITOURINARY: Negative. NEUROPSYCHIATRIC: Negative. PHYSICAL EXAMINATION: GENERAL: Shows a pleasant female, lying comfortably in bed. VITAL SIGNS: Reviewed in the electronic medical record and are stable. SKIN: Anicteric. HEENT: Shows no scleral icterus. NECK: Without lymphadenopathy or thyromegaly. LUNGS: Clear. HEART: Regular rate and rhythm. S1, S2. No murmur. ABDOMEN: Soft without focal masses or tenderness. Bowel sounds are present. No organomegaly is noted. EXTREMITIES: Without edema. IMPRESSION: She appears to have elevated liver function tests. This is likely due to her acute cholecystitis. She may have also passed a common bile duct stone and her MR is reassuring that she has no retained common duct stone. I discussed ERCP with her, but I do not recommend this at this time. This would be complicated by the fact that she has had prior Eleonora-en-Y gastrojejunostomy gastric bypass surgery. Thanks for asking me to see her. I will follow her in the hospital with you. MD ANUJA Marie/CAPRICE / [id number]
[2020-08-20] MEDS: Morphine Sulfate 2 MG/ML CARTRIDGE IVPUSH (18:02)
[2020-08-21] VITALS (15 sets, daily range): BP systolic 159–195; BP diastolic 76–100; PULSE 52–76; RESP 16–20; TEMP 36.2–37.1; O2SAT 97–100; BMI 27.2
[2020-08-21] MEDS: Piperacillin Sodium/Tazobactam 3.375 GM in 0.9 % Sodium Chloride 50 ML IV ×3 (05:21→21:13)
[2020-08-21] MEDS: HYDROmorphone HCl 0.5 MG/0.5 ML SYRINGE IVPUSH (06:37)
[2020-08-21 06:50] LABS: MANUAL DIFF FLAG NO
[2020-08-21 07:07] LABS: Basophils Percent Auto 0.2 % (0-2); Eosinophils Absolute Auto 0.1 X10*3/uL (0.0-0.4); Hematocrit 31.5 % (37-47); Hemoglobin 10.7 g/dl (12.0-16.0); Imm Gran Abs Auto 0.03 X10*3/uL (0.00-0.03); Imm Gran Pct Auto 0.3 % (0.0-0.4); Lymphocytes Absolute Auto 1.3 X10*3/uL (1.2-4.9); Lymphocytes Percent Auto 14.1 % (20-40); Mean Corpuscular Hemoglobin 30.7 pg (27.0-33.0); Mean Corpuscular Volume 90.3 fL (80-98); Mean Platelet Volume 12.8 fL (9.4-12.3); Monocytes Absolute Auto 0.9 X10*3/uL (0.1-1.2); Monocytes Percent Auto 9.8 % (2-11); Neutrophils Absolute Auto 6.7 X10*3/uL (2.0-8.3); Neutrophils Percent Auto 74.6 % (45-73); Red Blood Count 3.49 X10*6/uL (4.20-5.50); Red Cell Distribution Width 13.1 % (11.0-16.0)
[2020-08-21 07:21] LABS: Alanine Aminotransferase 160 U/L (0-31); Albumin Level 3.3 g/dL (3.5-5.0); Alkaline Phosphatase 185 U/L (39-117); Aspartate Amino Transferase 62 U/L (5-31); Bilirubin Total 1.5 mg/dL (0.0-1.0); Total Protein 6.7 g/dL (6.5-8.0)
[2020-08-21 07:33] LABS: Platelet Count 74 X10*3/uL (160-400)
--- NOTE | 2020-08-21 08:55 | P.CONAN_ITS ---
[facility] Past Medical History Medical History Arthritis Surgical History Surgical History H/O gastric bypass H/O total knee replacement Hx of tubal ligation Social History Social History Household Members: Family Housing: House Alcohol intake: never Smoking Status: Never smoker service: No Current occupational status: retired Meds Allergies Allergy/AdvReac Type Severity Reaction Status Date / Time acetaminophen [From Percocet] Allergy Mild nausea, Verified 08/19/20 13:48 headache, dizzy oxycodone [From Percocet] Allergy Mild nausea, Verified 08/19/20 13:48 headache, dizzy Home Medications Medication Instructions Recorded Confirmed Type gabapentin 1 cap PO TID 08/19/20 08/19/20 History meloxicam 1 tab PO DAILY 08/19/20 08/19/20 History Exam Exam Date and Time: August 21, 2020 0855 Height,Weight and Vital Signs: Height 5 ft 10 in Weight 86.183 kg Last Vital Signs Temp 97.9 F 08/21/20 08:40 Pulse 52 08/21/20 08:40 Resp 20 08/21/20 08:40 BP 162/96 H 08/21/20 08:40 Pulse Ox 99 08/21/20 08:40 Pertinent Lab Results Pertinent Lab Results: Laboratory Tests 08/19/20 08/19/20 08/19/20 14:28 14:29 15:49 WBC 21.8 H RBC 4.35 Hgb 13.2 Hct 39.4 MCV 90.6 MCH 30.3 MCHC 33.5 RDW 13.2 Plt Count 94 L MPV 12.0 Immature Gran % (Auto) 0.6 H Neut % (Auto) 93.8 H Lymph % (Auto) 3.0 L Marshall % (Auto) 2.5 Eos % (Auto) 0.0 Baso % (Auto) 0.1 Lymph # (Auto) 0.7 L Marshall # (Auto) 0.5 Eos # (Auto) 0.0 Baso # (Auto) 0.0 Abs Immat Gran (auto) 0.14 H Absolute Neuts (auto) 20.4 H Absolute Nucleated RBC 0.000 Nucleated RBC % (auto) 0.0 Smear Tech's Comments VERIFIED Hold Blue Top Sodium Potassium Chloride Carbon Dioxide Anion Gap BUN Creatinine Estim Creat Clear Calc Estimated GFR Random Glucose Lactic Acid Calcium Magnesium Total Bilirubin Direct Bilirubin AST ALT Alkaline Phosphatase Troponin I High Sens Total Protein Albumin Lipase 4 L Urine Color CLARISSA Urine Appearance CLOUDY Urine pH 7.5 Ur Specific [place] 1.015 Urine Protein TRACE Urine Glucose (UA) NEG Urine Ketones 40 Urine Blood TRACE Urine Nitrite POS H Ur Leukocyte Esterase TRACE H Urine RBC 0-2 Urine WBC 10-14 H Ur Squamous Epith Cells 2+ Urine Bacteria 4+ COVID-19 ([place]) COVID-19 [employer] Blood Type Antibody Screen 08/19/20 08/19/20 08/19/20 15:50 15:50 15:50 WBC RBC Hgb Hct MCV MCH MCHC RDW Plt Count MPV Immature Gran % (Auto) Neut % (Auto) Lymph % (Auto) Marshall % (Auto) Eos % (Auto) Baso % (Auto) Lymph # (Auto) Marshall # (Auto) Eos # (Auto) Baso # (Auto) Abs Immat Gran (auto) Absolute Neuts (auto) Absolute Nucleated RBC Nucleated RBC % (auto) Smear Tech's Comments Hold Blue Top SEE NOTE Sodium 145 Potassium 1.9 L* Chloride 122 H Carbon Dioxide 17 L Anion Gap 8 L BUN 10 Creatinine 0.48 L Estim Creat Clear Calc 137.5 Estimated GFR > 60 Random Glucose 56 L* Lactic Acid Calcium 4.9 L* Magnesium 1.2 L* Total Bilirubin 2.8 H Direct Bilirubin 2.4 H AST 154 H ALT 184 H Alkaline Phosphatase 126 H Troponin I High Sens < 3.5 Total Protein 3.9 L Albumin 2.1 L Lipase Urine Color Urine Appearance Urine pH Ur Specific [place] Urine Protein Urine Glucose (UA) Urine Ketones Urine Blood Urine Nitrite Ur Leukocyte Esterase Urine RBC Urine WBC Ur Squamous Epith Cells Urine Bacteria COVID-19 ([place]) COVID-19 [employer] Blood Type Antibody Screen 08/19/20 08/19/20 08/20/20 15:50 23:17 06:00 WBC 13.9 H RBC 3.54 L Hgb 10.9 L Hct 31.8 L MCV 89.8 MCH 30.8 MCHC 34.3 RDW 13.3 Plt Count 77 L MPV 12.3 Immature Gran % (Auto) Neut % (Auto) Lymph % (Auto) Marshall % (Auto) Eos % (Auto) Baso % (Auto) Lymph # (Auto) Marshall # (Auto) Eos # (Auto) Baso # (Auto) Abs Immat Gran (auto) Absolute Neuts (auto) Absolute Nucleated RBC 0.000 Nucleated RBC % (auto) 0.0 Smear Tech's Comments Hold Blue Top Sodium 139 Potassium 3.6 D Chloride 106 Carbon Dioxide 23 Anion Gap 14 BUN 10 Creatinine 0.78 Estim Creat Clear Calc 84.6 Estimated GFR > 60 Random Glucose 89 D Lactic Acid 0.6 Calcium 8.3 L D Magnesium Total Bilirubin Direct Bilirubin AST ALT Alkaline Phosphatase Troponin I High Sens Total Protein Albumin Lipase Urine Color Urine Appearance Urine pH Ur Specific [place] Urine Protein Urine Glucose (UA) Urine Ketones Urine Blood Urine Nitrite Ur Leukocyte Esterase Urine RBC Urine WBC Ur Squamous Epith Cells Urine Bacteria COVID-19 ([place]) COVID-19 [employer] Blood Type Antibody Screen 08/20/20 08/20/20 08/20/20 06:00 06:00 10:08 WBC RBC Hgb Hct MCV MCH MCHC RDW Plt Count MPV Immature Gran % (Auto) Neut % (Auto) Lymph % (Auto) Marshall % (Auto) Eos % (Auto) Baso % (Auto) Lymph # (Auto) Marshall # (Auto) Eos # (Auto) Baso # (Auto) Abs Immat Gran (auto) Absolute Neuts (auto) Absolute Nucleated RBC Nucleated RBC % (auto) Smear Tech's Comments Hold Blue Top Sodium 138 Potassium 3.6 Chloride 106 Carbon Dioxide 23 Anion Gap 13 BUN 9 Creatinine 0.77 Estim Creat Clear Calc 85.7 Estimated GFR > 60 Random Glucose 86 Lactic Acid Calcium 8.0 L Magnesium 2.2 Total Bilirubin 2.1 H Direct Bilirubin 1.6 H AST 147 H ALT 230 H Alkaline Phosphatase 202 H D Troponin I High Sens Total Protein 6.3 L D Albumin 3.2 L D Lipase 4 L Urine Color Urine Appearance Urine pH Ur Specific [place] Urine Protein Urine Glucose (UA) Urine Ketones Urine Blood Urine Nitrite Ur Leukocyte Esterase Urine RBC Urine WBC Ur Squamous Epith Cells Urine Bacteria COVID-19 ([place]) Negative COVID-19 [employer] See Note Blood Type Antibody Screen 08/21/20 08/21/20 08/21/20 06:36 06:36 06:36 WBC 9.0 RBC 3.49 L Hgb 10.7 L Hct 31.5 L MCV 90.3 MCH 30.7 MCHC 34.0 RDW 13.1 Plt Count 74 L MPV 12.8 H Immature Gran % (Auto) 0.3 Neut % (Auto) 74.6 H Lymph % (Auto) 14.1 L Marshall % (Auto) 9.8 Eos % (Auto) 1.0 Baso % (Auto) 0.2 Lymph # (Auto) 1.3 Marshall # (Auto) 0.9 Eos # (Auto) 0.1 Baso # (Auto) 0.0 Abs Immat Gran (auto) 0.03 Absolute Neuts (auto) 6.7 Absolute Nucleated RBC 0.000 Nucleated RBC % (auto) 0.0 Smear Tech's Comments Hold Blue Top Sodium Potassium Chloride Carbon Dioxide Anion Gap BUN Creatinine Estim Creat Clear Calc Estimated GFR Random Glucose Lactic Acid Calcium Magnesium Total Bilirubin 1.5 H Direct Bilirubin 1.0 H AST 62 H ALT 160 H Alkaline Phosphatase 185 H Troponin I High Sens Total Protein 6.7 Albumin 3.3 L Lipase Urine Color Urine Appearance Urine pH Ur Specific [place] Urine Protein Urine Glucose (UA) Urine Ketones Urine Blood Urine Nitrite Ur Leukocyte Esterase Urine RBC Urine WBC Ur Squamous Epith Cells Urine Bacteria COVID-19 ([place]) COVID-19 Clin Com Blood Type A Positive Antibody Screen NEGATIVE Airway Mallampati Class: II (Prominent upper central incisors) TM Dist: >3cm Neck ROM: Full Loose/Missing/Broken Teeth: No Heart: RRR Lungs: CTA Assessment and Plan Assessment Anesthesia Assessment: Anesthesia Plan Discussed and Chart Reviewed Final Anesthetic Review NPO: Yes ASA Class: II Final Preanesthetic Review: Meds/Allgs Chart Reviewed, Consent Obtained/Reviewed and Anes Risks/Benef Reviewed Patient Risk: Low Procedure Risk: Intermediate Anesthetic Plan Anesthetic Plan: GA Disposition: Standard PACU
--- NOTE | 2020-08-21 09:12 | PM.EVENT ---
Event Note Date of Service: 08/21/20 Event Note: pt feels better however, says she still has pain on RUQ when pain meds wear off no fever looks well abd soft, some tenderness to deep palpation on RUQ WBC now normal LFTs near normal seen by GI - appreciate input from Hugo had discussion with pt - reviewed technique pomarilynn benavides. open; discussed risks including but not limited to bleeding, infections injury to adjacent organs she also had positive blood cultures she was initally hesitant but eventually stated that she wants to proceed in view of her pain she understand high chance of converting to open in view of degree of inflammatory changes in GB wall dw her Obie as well [phone]
--- NOTE | 2020-08-21 11:09 | P.BOP_ITS ---
Brief Operative Note Date of Service: 08/21/20 <BELINDA Vasquez Last Filed: 08/21/20 11:09> Pre-op diagnosis: acute cholecystitis <BELINDA Vasquez Last Filed: 08/21/20 11:09> Post-op diagnosis: same <BELINDA Vasquez Last Filed: 08/21/20 11:09> Procedure: laparoscopic cholecystectomy <BELINDA Vasquez Last Filed: 08/21/20 11:09> Implants: None <BELINDA Vasquez Last Filed: 08/21/20 11:09> Surgeon: JAYJAY COTA MD <BELINDA Vasquez Last Filed: 08/21/20 11:09> Anesthesia: GETA <BELINDA Vasquez Last Filed: 08/21/20 11:09> Production Operations Engineer: Sharona Carpenter <BELINDA Vasquez Last Filed: 08/21/20 11:09> Estimated blood loss (mL): 25 <BELINDA Vasquez Last Filed: 08/21/20 11:09> Pathology: other (gallbladder) <BELINDA Vasquez Last Filed: 08/21/20 11:09> Condition: stable <BELINDA Vasquez Last Filed: 08/21/20 11:09> Disposition: PACU <BELINDA Vasquez Last Filed: 08/21/20 11:09>
--- NOTE | 2020-08-21 11:09 | P.OP_ITS ---
Operative Note Operative Note Date of Service: 08/21/20 Narrative: PROCEDURE: LAPAROSCOPIC CHOLECYSTECTOMY PREOP DIAGNOSIS: ACUTE CHOLECYSTITIS POSTOP DIAGNOSIS: ACUTE CHOLECYSTITIS, WITH SEVERE EDEMA AND ERYTHEMA AND DISTENTION OF THE GALLBLADDER SURGEON: JAYJAY COTA MD HEALTH CARE AIDE: KIN BRUCE 64-year-old female admitted for acute cholecystitis last 08/19/2020. She also had some elevation of her liver panel. An MRI was done which did not reveal any filling defect in the common bile duct although the duct did appear dilated. Her LFTs had promptly improved and were near normal this morning. She had significant edema of the gallbladder wall and distention of the gallbladder itself on imaging, along with positive blood cultures. She came in with white count of 21. Her pain and tenderness had improved but she did feel that she was still requiring pain medications. In view of this along, with her positive blood cultures, she had therefore agreed to proceed with cholecystectomy. I explained to her the technique of laparoscopic cholecystectomy and possible open cholecystectomy. I reviewed the risks, benefits, and alternatives extensively. Her Obie was involved with the discussion. She was brought to the operating room placed supine on the table under general anesthesia via endotracheal tube. The abdomen was prepped and draped in usual sterile fashion. A surgical time-out was done. The patient received Cefotan 2 g IV preoperatively. A small incision was made on the skin in the infraumbilical margin using a blade 15. This was extended through the full-thickness of skin and subcutaneous fat down to the fascia. The fascia was incised and the peritoneum was entered. Through this incision, a Jennie port was introduced. Pneumoperitoneum was introduced to a pressure of 15 mm hg. From here on the rest of procedure was done under vision with the laparoscope with laparoscopic visualization, a 5/12 mm port was introduced through a smalll incision on the epigastric area below the subcostal margin. 5 mm ports were introduced through small incisions below the subcostal margin along the anterior axillary line and the midclavicular line. Graspers were placed through these working ports. The patient was placed in head-up and [id number] position. The gallbladder was seen and appeared very distended, edematous and erythematous. However, we were able to apply grasper at the fundus and this was used to retract the gallbladder cephalad. Another grasper was applied on the pouch of the gallbladder and this was used to retract the gallbladder laterally. At this point therefore the gallbladder was being retracted in cephalad and lateral fashion to put the area of the cystic duct on stretch. There was note of some inflamed fibroareolar tissue surrounding the area of the cystic duct so we carefully dissected this using the [place] dissector. We proceeded slowly in view of the significant inflammation and edema. With careful dissection, we were eventually able to identify a very thin tubular structure that led into the gallbladder wall. This appeared to be a very thin vessel so clips were applied on this with 2 clips being applied distally. This was transected between clips. By doing so I was able to visualize the cystic duct. The cystic duct was a little dilated and we continued to carefully dissect this with the [place] dissector until I was able to clearly verify its confluence with the neck of the gallbladder. The neck of the gallbladder seemed to taper gently all the way to the duct. We were able to achieve a critical view of the hepatocystic triangle and there were no other tubular structures that could be seen along the hilum. Also, the hilum was noted to be very thin so could clearly see the edge of the gallbladder wall all the way to the the liver. We proceeded to apply clips on this cystic duct, with 2 clips being applied distally. The cystic duct was transected between clips using the Endo scissors. We proceeded to carefully dissect across the hilum with the [place] dissector until reach the interface of the gallbladder and the liver bed. We made at incision on the peritoneum of the gallbladder wall using the electrocautery spatula and carefully defined a plane of dissection between the gallbladder wall and the liver bed using combination of blunt dissection as well as with electrocautery itself. We the gallbladder wall gently. Again, the gallbladder wall was very edematous and inflamed but we were able to carefully separate this from the liver bed although with some significant oozing from the inflamed wall. During the dissection of the gallbladder wall off off the liver bed, another tubular structure was seen that was going into the gallbladder wall itself and appeared to be an artery. We carefully defined this with a dissection using the [place] dissector. We then clearly so the that this artery was going into the gallbladder wall itself, so we applied clips with 2 clips applied distally. This was transected between clips with Endo scissors. This likely represented a variant arterial branch. We continue to separate the gallbladder wall gently from the liver bed all the way to the fundus until the entire gallbladder was completely . We were able to retrieve the gallbladder using an endobag through the umbilical incision. We reinserted all ports and re-insufflated. A examined the subhepatic space. There was some oozing from the liver bed so I positioned a small piece of Surgicel into this. There was no obvious arterial bleeder or any brisk oozing. We rib served all 4 quadrants of the peritoneal cavity and there was no other pathology or any evidence of any bowel injury. I re-examined the subhepatic space. This appeared to be hemostatic without any obvious bleeding or any bile leak. Once hemostasis was ensured I proceeded to irrigate and suction the irrigant fluid around the liver. We then desufflated the port sites and removed all ports.. The umbilical port was removed last along with the laparoscope. I closed the fascia of the umbilical incision with [id number] Dexon 0 stitch. All skin incisions where closed with Dexon 4-0 subcuticular sutures. Steri-Strips and dressings were applied. All incisions were also infiltrated with Marcaine 0.5% for postop analgesia. The procedure was then completed. The patient tolerated procedure well. There were no complications noted. Initial and final counts of sponges and instruments were correct. Estimated blood loss about 150 cc. The patient was extubated in the operating room transferred to recovery room with stable vital signs.
[2020-08-21] MEDS: fentaNYL citrate/PF 100 MCG/2 ML VIAL 50 MCG IVPUSH ×2 (11:23→11:27)
[2020-08-21] MEDS: oxyCODONE HCl Immed Release 5 MG TABLET 10 MG PO (11:24)
--- NOTE | 2020-08-21 12:54 | PC.NURSE ---
1225 REQ BEDPAN OFFERED TO AMB TO BR MONITORS DCD IVF DCD AMB WELL TO BR TO VOID RETURN TO PACU 9 AAWAIT TRX TO FLOOR REPORT TO MIGUEL A PAULSON ON FLOOR AND DIMITRIS De La Garza IN PACU FOR TRANSFER AT 1250
[2020-08-21] MEDS: Lactated Ringers 1,000 ML 100 ML IVCONT (13:04)
[2020-08-21] MEDS: Gabapentin 100 MG CAPSULE PO ×2 (13:07→21:13)
--- NOTE | 2020-08-21 13:37 | MHC.CM.PN ---
NURSE PLATEN DRIER OPERATOR NOTE ELECTRONIC MEDICAL RECORD REVIEWED ALONG WITH CASE DISCUSSED WITH STAFF NURSE. S/P 08/21/20 LAPAROSCOPIC CHOLECTATECTOMY FOR ACUTE CHOLECYSTITIS WITH SEVERE EDEMA AND ERYTHEMA AND DISTENSION OF THE GALLBLADDER DISCHARGE PLAN ANTICIP[ATE DISCHARGE HOME NO SERVICES TRANSPORTATION FAMILY PCP GADIEL ALMODOVAR PATIENT TO CALL FOR POST HOSPITAL DISCHARGE
--- NOTE | 2020-08-21 13:47 | P.PNIM_ITS ---
Subjective Subjective Date of Service: 08/21/20 Interval History: feeling well Cardiovascular Cardiovascular: Reports no additional cardiovascular complaints Gastrointestinal Gastrointestinal: Reports no additional gastrointestinal complaints Physical Exam Vital Signs: Vital Signs: Last Vital Signs Temp 98.2 F 08/21/20 13:16 Pulse 70 08/21/20 13:16 Resp 20 08/21/20 13:16 BP 181/94 H 08/21/20 13:16 Pulse Ox 99 08/21/20 13:16 Body Mass Index 27.2 General: AO X 3, no acute distress Resp: CTA bilateral CVS: S1,S2,RRR GI: soft, non tender, non distended Neuro: motor grossly intact Psych: appropriate affect Objective Data Current Medications Generic Name Dose Route Start Last Admin Trade Name Freq PRN Reason Stop Dose Admin Albuterol Sulfate 2.5 mg 08/21/20 10:23 Albuterol Sulfate (0.083%) 2.5 Mg/3 Ml Vial.Neb INHALE ONCE PRN Wheezing Gabapentin 100 mg 08/20/20 09:00 08/21/20 13:07 Gabapentin 100 Mg Capsule PO 100 mg TID MAURICE Administration Lactated Ringer's 1,000 mls @ 60 mls/hr 08/19/20 18:00 08/21/20 13:04 Lr IVCONT 100 mls/hr .[id number] MAURICE Administration Piperacillin Sod/Tazobactam 50 mls @ 100 mls/hr 08/19/20 22:00 08/21/20 08:14 Sod 3.375 gm/ Sodium Chloride IV Not Given Q6H MAURICE Morphine Sulfate 2 mg 08/19/20 18:04 08/20/20 18:02 Morphine Sulfate 2 Mg/Ml Cartridge IVPUSH 2 mg Q4H PRN Administration Pain, Severe (Pain Scale 7-10) Ondansetron HCl 4 mg 08/19/20 17:54 Ondansetron Hcl 4 Mg/2 Ml Vial IVPUSH Q8H PRN nausea Oxycodone HCl 5 mg 08/20/20 08:42 Oxycodone Hcl Immed Release 5 Mg Tablet PO Q4H PRN Pain, Mild (Pain Scale 1-3) Sodium Chloride 3 ml 08/20/20 00:00 08/21/20 07:23 0.9 % Sodium Chloride Flush 3 Ml Syringe IVFLUSH Not Given QSHIFT [facility] Labs CBC & Chem 7: 0203/21 06:36 08/20/20 06:00 Microbiology Microbiology Results: Microbiology 08/19/20 15:53 Blood - Venous Blood Culture - Preliminary Gram negative flash 08/19/20 15:50 Blood - Venous Blood Culture - Preliminary Gram negative flash 08/19/20 00:00 Urine clean catch - Clean Catch Midstream Urine Culture - Final Escherichia coli Assessment and Plan (1) Acute cholecystitis: Problem details: Likely gram negative rods related to cholecystitis This can be E coli,Klebsiella No urinary symptoms Status: Acute Assessment and Plan: 64F presented with abd pain acute cholecystitis with bacteremia -GNR continue zosyn s/p cholecystectomy today, feeling well follow up final cultures
--- NOTE | 2020-08-21 15:20 | PM.EVENT ---
Event Note Date of Service: 08/21/20 Event Note: Seen on afternoon rounds She underwent laparoscopic cholecystectomy earlier Has good pain control Looks well and comfortable Stable vital signs Abdomen soft Continue pain management Doing well postoperatively Likely DC home tomorrow Obie updated by phone
[2020-08-21] MEDS: oxyCODONE HCl Immed Release 5 MG TABLET PO (16:44)
[2020-08-22] MEDS: 0.9 % Sodium Chloride Flush 3 ML SYRINGE IVFLUSH (00:22)
[2020-08-22] MEDS: Lactated Ringers 1,000 ML 100 ML IVCONT (00:26)
[2020-08-22 00:45] VITALS: BP 163/88
[2020-08-22] MEDS: Piperacillin Sodium/Tazobactam 3.375 GM in 0.9 % Sodium Chloride 50 ML IV ×2 (04:02→10:17)
[2020-08-22] MEDS: Morphine Sulfate 2 MG/ML CARTRIDGE IVPUSH (04:05)
[2020-08-22 06:39] LABS: Alanine Aminotransferase 106 U/L (0-31); Albumin Level 3.2 g/dL (3.5-5.0); Alkaline Phosphatase 157 U/L (39-117); Aspartate Amino Transferase 32 U/L (5-31); Bilirubin Direct 0.7 mg/dL (0.0-0.5); Total Protein 6.3 g/dL (6.5-8.0)
--- NOTE | 2020-08-22 07:59 | P.PNGS_ITS ---
Subjective Subjective Date of Service: 08/22/20 <Sharona Carpenter PA-C - Last Filed: 08/22/20 08:06> 08/22/20 <Link Gallegos MD - Last Filed: 08/22/20 09:07> Interval history: Feels ok this morning but had some RUQ pain last night following dinner. No nausea or vomiting. OOB and ambulating to bathroom. <MEGAN Vasquez - Last Filed: 08/22/20 08:06> Physical Exam Vital Signs: Vital Signs: Last Vital Signs Temp 98.2 F 08/21/20 23:52 Pulse 65 08/21/20 23:52 Resp 18 08/21/20 23:52 BP 163/88 H 08/22/20 00:45 Pulse Ox 98 08/21/20 23:52 Body Mass Index 27.2 <BELINDA Vasquez Last Filed: 08/22/20 08:06> Const: General: comfortable, no acute distress and alert <Sharona Carpenter PA-C - Last Filed: 08/22/20 08:06> Orientation/consciousness: patient oriented x3 <BELINDA Vasquez Last Filed: 08/22/20 08:06> Eyes: Sclerae: sclerae normal <BELINDA Vasquez Last Filed: 08/22/20 08:06> Resp: Effort & Inspection: normal respiratory effort <BELINDA Vasquez Last Filed: 08/22/20 08:06> Cardio: Rate: regular rate <Sharona Carpenter PA-C - Last Filed: 08/22/20 08:06> GI: Inspection: No distended and Yes incision (dressings clean) <BELINDA Vasquez Last Filed: 08/22/20 08:06> Palpation (GI): Soft to palpation, Tenderness to palpation present (GI) (mild, incisional and RUQ), no guarding and No Rebound tenderness present <BELINDA Vasquez Last Filed: 08/22/20 08:06> Skin: General skin exam: no rashes or lesions noted <BELINDA Vasquez Filed: 08/22/20 08:06> Neuro: General: patient oriented x3 <BELINDA Vasquez Last Filed: 08/22/20 08:06> Extrem: General: Yes no clubbing, cyanosis or edema <Sharona Carpenter PA-C - Last Filed: 08/22/20 08:06> Progress Note: A&P Assessment and plan (1) Acute cholecystitis: Problem details: GNR bactermia s/p lap CCY <Sharona Carpenter PA-C - Last Filed: 08/22/20 08:06> Status: Acute <BELINDA Vasquez Last Filed: 08/22/20 08:06> Assessment and Plan: Cont IV zosyn. ?Abx duration. <BELINDA Vasquez Last Filed: 08/22/20 08:06> Status post lap cholecystectomy Looks well and appears comfortable Abdomen soft Sclerae anicteric Described episode of pain after dinner last night Encourage ambulation LFTs continue to down trend - now near normal If she continues do well, plan to DC home today To discuss duration of antibiotics with hospitalist Seen and examined independently -agree with KIN Carpenter <Link Gallegos MD - Last Filed: 08/22/20 09:07> (2) Acute UTI: Status: Acute <Sharona Carpenter PA-C - Last Filed: 08/22/20 08:06> (3) Elevated LFTs: Status: Acute <Sharona Carpenter PA-C - Last Filed: 08/22/20 08:06> (4) S/P laparoscopic cholecystectomy: Problem details: POD #1 <Sharona Carpenter PA-C - Last Filed: 08/22/20 08:06> Status: Acute <BELINDA Vasquez Last Filed: 08/22/20 08:06> Assessment and Plan: Doing well post op, some discomfort with dinnner last night. VSS. Abd exam benign- appropriate post op tenderness. Dressings clean. Will reassess following breakfast- if tolerating and comfortable may be ready for discharge today. ?Abx duration with GNR bacteremia- will follow up with hospitalist. <Sharona Carpenter PA-C - Last Filed: 08/22/20 08:06> Fall Risk Details Current Medications: Current Medications Generic Name Dose Route Start Last Admin Trade Name Freq PRN Reason Stop Dose Admin Albuterol Sulfate 2.5 mg 08/21/20 10:23 Albuterol Sulfate (0.083%) 2.5 Mg/3 Ml Vial.Neb INHALE ONCE PRN Wheezing Gabapentin 100 mg 08/20/20 09:00 08/21/20 21:13 Gabapentin 100 Mg Capsule PO 100 mg TID MAURICE Administration Lactated Ringer's 1,000 mls @ 60 mls/hr 08/19/20 18:00 08/22/20 04:45 Lr IVCONT 60 mls/hr .[id number] MAURICE Infusion Piperacillin Sod/Tazobactam 50 mls @ 100 mls/hr 08/19/20 22:00 08/22/20 04:45 Sod 3.375 gm/ Sodium Chloride IV Infused Q6H MAURICE Infusion Morphine Sulfate 2 mg 08/19/20 18:04 08/22/20 04:05 Morphine Sulfate 2 Mg/Ml Cartridge IVPUSH 2 mg Q4H PRN Administration Pain, Severe (Pain Scale 7-10) Ondansetron HCl 4 mg 08/19/20 17:54 Ondansetron Hcl 4 Mg/2 Ml Vial IVPUSH Q8H PRN nausea Oxycodone HCl 5 mg 08/20/20 08:42 08/21/20 16:44 Oxycodone Hcl Immed Release 5 Mg Tablet PO 5 mg Q4H PRN Administration Pain, Mild (Pain Scale 1-3) Sodium Chloride 3 ml 08/20/20 00:00 08/22/20 00:22 0.9 % Sodium Chloride Flush 3 Ml Syringe IVFLUSH 3 ml QSHIFT MAURICE Administration <Sharona Carpenter PA-C - Last Filed: 08/22/20 08:06> Time Spent With Patient Time: Total time spent is greater than 50% in coordination of care (as fartun herrera) at patient's floor/unit and/or counseling patient: <Sharona Carpenter PA-C - Last Filed: 08/22/20 08:06> Time with patient: 15 - 24 minutes <Sharona Carpenter PA-C - Last Filed: 08/22/20 08:06>
[2020-08-22 08:00] VITALS: BP 175/90; PULSE 59; TEMP 36.7; O2SAT 99
[2020-08-22] MEDS: Gabapentin 100 MG CAPSULE PO (08:15)
--- NOTE | 2020-08-22 08:55 | HO.POSTANES ---
Post Anesthesia Evaluation Post Anesthesia Evaluation Vital Signs: Vital Signs Temp Pulse Resp BP Pulse Ox 08/22/20 08:00 98.0 F 59 175/90 H 99 08/22/20 00:45 163/88 H 08/21/20 23:52 98.2 F 65 18 98 Anesthesia: General Endotracheal-GETA Mental Status: Awake Pain Control: Satisfactory Nausea/Vomiting: None Hydration: Adequate Anesthesia-Related Issues: No Anes. Related Issues
--- NOTE | 2020-08-22 09:38 | HO.PM.IMPN ---
Subjective Subjective Date of Service: 08/22/20 Interval History: feeling well Cardiovascular Cardiovascular: Reports no additional cardiovascular complaints Respiratory Respiratory: Reports no additional respiratory complaints Physical Exam Vital Signs: Vital Signs: Last Vital Signs Temp 98.0 F 08/22/20 08:00 Pulse 59 08/22/20 08:00 Resp 18 08/21/20 23:52 BP 175/90 H 08/22/20 08:00 Pulse Ox 99 08/22/20 08:00 Body Mass Index 27.2 General: AO X 3, no acute distress Resp: CTA bilateral CVS: S1,S2,RRR GI: soft, non tender, non distended Neuro: motor grossly intact Psych: appropriate affect Objective Data Current Medications Generic Name Dose Route Start Last Admin Trade Name Freq PRN Reason Stop Dose Admin Albuterol Sulfate 2.5 mg 08/21/20 10:23 Albuterol Sulfate (0.083%) 2.5 Mg/3 Ml Vial.Neb INHALE ONCE PRN Wheezing Gabapentin 100 mg 08/20/20 09:00 08/22/20 08:15 Gabapentin 100 Mg Capsule PO 100 mg TID MAURICE Administration Lactated Ringer's 1,000 mls @ 60 mls/hr 08/19/20 18:00 08/22/20 08:18 Lr IVCONT Infused .[id number] MAURICE Infusion Piperacillin Sod/Tazobactam 50 mls @ 100 mls/hr 08/19/20 22:00 08/22/20 04:45 Sod 3.375 gm/ Sodium Chloride IV Infused Q6H MAURICE Infusion Morphine Sulfate 2 mg 08/19/20 18:04 08/22/20 04:05 Morphine Sulfate 2 Mg/Ml Cartridge IVPUSH 2 mg Q4H PRN Administration Pain, Severe (Pain Scale 7-10) Ondansetron HCl 4 mg 08/19/20 17:54 Ondansetron Hcl 4 Mg/2 Ml Vial IVPUSH Q8H PRN nausea Oxycodone HCl 5 mg 08/20/20 08:42 08/21/20 16:44 Oxycodone Hcl Immed Release 5 Mg Tablet PO 5 mg Q4H PRN Administration Pain, Mild (Pain Scale 1-3) Sodium Chloride 3 ml 08/20/20 00:00 08/22/20 08:17 0.9 % Sodium Chloride Flush 3 Ml Syringe IVFLUSH Not Given QSHIFT [facility] Labs CBC & Chem 7: 08/21/20 06:36 08/20/20 06:00 Microbiology Microbiology Results: Microbiology 08/19/20 15:53 Blood - Venous Blood Culture - Final Escherichia coli 08/19/20 15:50 Blood - Venous Blood Culture - Final Escherichia coli 08/19/20 00:00 Urine clean catch - Clean Catch Midstream Urine Culture - Final Escherichia coli Assessment and Plan (1) Acute cholecystitis: Problem details: GNR bactermia s/p lap CCY Status: Acute Assessment and Plan: 64F presented with abd pain acute cholecystitis with bacteremia -lira sensitive ecoli can change to levaquin on dc
[2020-08-22] MEDS: oxyCODONE HCl Immed Release 5 MG TABLET PO (10:17)
--- NOTE | 2020-08-22 10:18 | PM.DS ---
DS: Providers Provider Date of Service: 08/22/20 Date of admission: 08/19/20 17:51 Primary care physician: Khurram Knox MD Consults: 08/19/20 18:00 Consult to Hospitalist Routine Consulting Provider: Hospitalist 08/20/20 06:08 Consult to Infectious Diseases Stat Consulting Provider: Jessica Chaney Reason for consultation: bloodcx grew gram positive rods 08/20/20 09:43 Consult to Gastroenterology Routine Consulting Provider: Zane Arias Reason for consultation: abnormal LFTs,dilated ducts, cholecystitis, DS: Diagnosis Discharge Diagnosis (1) Acute cholecystitis: Status: Acute Problem details: GNR bactermia s/p lap CCY (2) Elevated LFTs: Status: Acute (3) S/P laparoscopic cholecystectomy: Status: Acute Problem details: POD #1 (4) Acute UTI: Status: Acute DS: Medications Discharge Medications Home Medications: Home Medications Medication Instructions Recorded Confirmed gabapentin 1 cap PO TID 08/19/20 08/19/20 meloxicam 1 tab PO DAILY 08/19/20 08/19/20 Previous Rx's Medication Instructions Recorded levofloxacin 500 mg PO DAILY #7 tab 08/22/20 oxycodone 5 mg PO Q4H PRN #24 tab 08/22/20 DS: Summary Hospital Course Hospital Course: BRIEF HPI: Evelyne Wahl is a 64 year old female who says she has been having pain on the right side of her abdomen since Wednesday which was about 3 days prior to presentation. She says this had persisted over the weekend so she decided to come to the ED today. The pain is associated with anorexia and nausea without vomiting. She denies any similar episodes in the past. She denies any fever or chills. She was found to be tender in the RUQ on exam with a leukocytosis and had imaging studies in the ED showing acute cholecysititis. Surgery was therefore consulted. HOSPITAL COURSE: The patient was admitted to the surgical service for further treatment of acute cholecystitis. The gallbladder wall is markedly thickened and she had elevated LFTs with some suggestion of ductal dilatation. She was started on IV zosyn, IVF and pain medication as needed. Further treatment options were discussed with the patient including proceeding with laparoscopic possible open cholecystectomy versus IV abx and observation. Her UA was also suggestive of a UTI, which was covered with IV zosyn. An MRCP was ordered to r/o biliary obstruction which was negative for filling defect. GI was consulted who felt no ERCP was needed. Her LFTs continually downtrended. The patient's blood cultures came back positive for GNR bacteremia. In light of this and persistence of pain, it was recommended to proceed with cholecystectomy. She agreed and was added onto the OR schedule. A ID consult was obtained who recommended continuing zosyn and cholecystectomy for the bacteremia. On ,1 a laparoscopic cholecystectomy was preformed by Dr. Gann without complication. The gallbladder was found to be markedly distended and edematous. The patient tolerated the procedure well and was admitted back to the medical/surgical floor for observation. She had an uncomplicated recovery course. On POD #1, she felt well and was comfortable however she had some discomfort with eating the night prior. She was reassessed later in the day and felt well. She was tolerating a solid diet and her pain was well controlled. Her blood cultures came back with E coli sensitive to levaquin and she was transitioned to PO antibiotics. She was clinically appearing well with a benign abdominal exam and clean incisions. She was discharged to home on 08/22/20 in stable condition with a PO course of levaquin. She is to follow up with Dr. Gann in 2 weeks in office. Status at Discharge Functional status at discharge: independent ambulation Overall status at discharge: patient is progressing back to baseline Time Spent with Patient Time attestation: Total time spent providing and/or coordinating discharge services: Discharge coordination time: Greater than 30 minutes Physical Exam Vital Signs: Vital Signs: Last Vital Signs Temp 98.0 F 08/22/20 08:00 Pulse 59 08/22/20 08:00 Resp 18 08/21/20 23:52 BP 175/90 H 08/22/20 08:00 Pulse Ox 99 08/22/20 08:00 Body Mass Index 27.2 Const: General: comfortable, no acute distress and alert Orientation/consciousness: patient oriented x3 Eyes: Sclerae: sclerae normal Resp: Effort & Inspection: normal respiratory effort GI: Inspection: No distended and Yes incision (dressings c/d/i) Palpation (GI): Soft to palpation, not firm, Tenderness to palpation present (GI) (mild incisional and RUQ), no guarding and not rigid Skin: Other: normal color warm and dry General skin exam: no rashes or lesions noted Neuro: General: patient oriented x3 Extrem: General: Yes no clubbing, cyanosis or edema DS: Data Data Completed and Pending Pending studies at discharge: Pending at discharge 08/21/20 10:49 Surgical [PTH] Routine Labs on day of discharge: Laboratory Tests 08/19/20 08/19/20 08/19/20 14:28 14:29 15:49 WBC 21.8 H RBC 4.35 Hgb 13.2 Hct 39.4 MCV 90.6 MCH 30.3 MCHC 33.5 RDW 13.2 Plt Count 94 L MPV 12.0 Immature Gran % (Auto) 0.6 H Neut % (Auto) 93.8 H Lymph % (Auto) 3.0 L [place] % (Auto) 2.5 Eos % (Auto) 0.0 Baso % (Auto) 0.1 Lymph # (Auto) 0.7 L [place] # (Auto) 0.5 Eos # (Auto) 0.0 Baso # (Auto) 0.0 Abs Immat Gran (auto) 0.14 H Absolute Neuts (auto) 20.4 H Absolute Nucleated RBC 0.000 Nucleated RBC % (auto) 0.0 Smear Tech's Comments VERIFIED Hold Blue Top Sodium Potassium Chloride Carbon Dioxide Anion Gap BUN Creatinine Estim Creat Clear Calc Estimated GFR Random Glucose Lactic Acid Calcium Magnesium Total Bilirubin Direct Bilirubin AST ALT Alkaline Phosphatase Troponin I High Sens Total Protein Albumin Lipase 4 L Urine Color CLARISSA Urine Appearance CLOUDY Urine pH 7.5 Ur Specific [place] 1.015 Urine Protein TRACE Urine Glucose (UA) NEG Urine Ketones 40 Urine Blood TRACE Urine Nitrite POS H Ur Leukocyte Esterase TRACE H Urine RBC 0-2 Urine WBC 10-14 H Ur Squamous Epith Cells 2+ Urine Bacteria 4+ COVID-19 ([place]) COVID-19 Clin Com Blood Type Antibody Screen 08/19/20 08/19/20 08/19/20 15:50 15:50 15:50 WBC RBC Hgb Hct MCV MCH MCHC RDW Plt Count MPV Immature Gran % (Auto) Neut % (Auto) Lymph % (Auto) [place] % (Auto) Eos % (Auto) Baso % (Auto) Lymph # (Auto) [place] # (Auto) Eos # (Auto) Baso # (Auto) Abs Immat Gran (auto) Absolute Neuts (auto) Absolute Nucleated RBC Nucleated RBC % (auto) Smear Tech's Comments Hold Blue Top SEE NOTE Sodium 145 Potassium 1.9 L* Chloride 122 H Carbon Dioxide 17 L Anion Gap 8 L BUN 10 Creatinine 0.48 L Estim Creat Clear Calc 137.5 Estimated GFR > 60 Random Glucose 56 L* Lactic Acid Calcium 4.9 L* Magnesium 1.2 L* Total Bilirubin 2.8 H Direct Bilirubin 2.4 H AST 154 H ALT 184 H Alkaline Phosphatase 126 H Troponin I High Sens < 3.5 Total Protein 3.9 L Albumin 2.1 L Lipase Urine Color Urine Appearance Urine pH Ur Specific [place] Urine Protein Urine Glucose (UA) Urine Ketones Urine Blood Urine Nitrite Ur Leukocyte Esterase Urine RBC Urine WBC Ur Squamous Epith Cells Urine Bacteria COVID-19 ([place]) COVIDPlan A Drink Blood Type Antibody Screen 08/19/20 08/19/20 08/20/20 15:50 23:17 06:00 WBC 13.9 H RBC 3.54 L Hgb 10.9 L Hct 31.8 L MCV 89.8 MCH 30.8 MCHC 34.3 RDW 13.3 Plt Count 77 L MPV 12.3 Immature Gran % (Auto) Neut % (Auto) Lymph % (Auto) [place] % (Auto) Eos % (Auto) Baso % (Auto) Lymph # (Auto) [place] # (Auto) Eos # (Auto) Baso # (Auto) Abs Immat Gran (auto) Absolute Neuts (auto) Absolute Nucleated RBC 0.000 Nucleated RBC % (auto) 0.0 Smear Tech's Comments Hold Blue Top Sodium 139 Potassium 3.6 D Chloride 106 Carbon Dioxide 23 Anion Gap 14 BUN 10 Creatinine 0.78 Estim Creat Clear Calc 84.6 Estimated GFR > 60 Random Glucose 89 D Lactic Acid 0.6 Calcium 8.3 L D Magnesium Total Bilirubin Direct Bilirubin AST ALT Alkaline Phosphatase Troponin I High Sens Total Protein Albumin Lipase Urine Color Urine Appearance Urine pH Ur Specific [place] Urine Protein Urine Glucose (UA) Urine Ketones Urine Blood Urine Nitrite Ur Leukocyte Esterase Urine RBC Urine WBC Ur Squamous Epith Cells Urine Bacteria COVID-19 ([place]) COVID-19 [place] Blood Type Antibody Screen 08/20/20 08/20/20 08/20/20 06:00 06:00 10:08 WBC RBC Hgb Hct MCV MCH MCHC RDW Plt Count MPV Immature Gran % (Auto) Neut % (Auto) Lymph % (Auto) [place] % (Auto) Eos % (Auto) Baso % (Auto) Lymph # (Auto) [place] # (Auto) Eos # (Auto) Baso # (Auto) Abs Immat Gran (auto) Absolute Neuts (auto) Absolute Nucleated RBC Nucleated RBC % (auto) Smear Tech's Comments Hold Blue Top Sodium 138 Potassium 3.6 Chloride 106 Carbon Dioxide 23 Anion Gap 13 BUN 9 Creatinine 0.77 Estim Creat Clear Calc 85.7 Estimated GFR > 60 Random Glucose 86 Lactic Acid Calcium 8.0 L Magnesium 2.2 Total Bilirubin 2.1 H Direct Bilirubin 1.6 H AST 147 H ALT 230 H Alkaline Phosphatase 202 H D Troponin I High Sens Total Protein 6.3 L D Albumin 3.2 L D Lipase 4 L Urine Color Urine Appearance Urine pH Ur Specific [place] Urine Protein Urine Glucose (UA) Urine Ketones Urine Blood Urine Nitrite Ur Leukocyte Esterase Urine RBC Urine WBC Ur Squamous Epith Cells Urine Bacteria COVID-19 ([place]) Negative COVID-19 Clin Com See Note Blood Type Antibody Screen 08/21/20 08/21/20 08/21/20 06:36 06:36 06:36 WBC 9.0 RBC 3.49 L Hgb 10.7 L Hct 31.5 L MCV 90.3 MCH 30.7 MCHC 34.0 RDW 13.1 Plt Count 74 L MPV 12.8 H Immature Gran % (Auto) 0.3 Neut % (Auto) 74.6 H Lymph % (Auto) 14.1 L [place] % (Auto) 9.8 Eos % (Auto) 1.0 Baso % (Auto) 0.2 Lymph # (Auto) 1.3 [place] # (Auto) 0.9 Eos # (Auto) 0.1 Baso # (Auto) 0.0 Abs Immat Gran (auto) 0.03 Absolute Neuts (auto) 6.7 Absolute Nucleated RBC 0.000 Nucleated RBC % (auto) 0.0 Smear Tech's Comments Hold Blue Top Sodium Potassium Chloride Carbon Dioxide Anion Gap BUN Creatinine Estim Creat Clear Calc Estimated GFR Random Glucose Lactic Acid Calcium Magnesium Total Bilirubin 1.5 H Direct Bilirubin 1.0 H AST 62 H ALT 160 H Alkaline Phosphatase 185 H Troponin I High Sens Total Protein 6.7 Albumin 3.3 L Lipase Urine Color Urine Appearance Urine pH Ur Specific [place] Urine Protein Urine Glucose (UA) Urine Ketones Urine Blood Urine Nitrite Ur Leukocyte Esterase Urine RBC Urine WBC Ur Squamous Epith Cells Urine Bacteria COVID-19 ([place]) COVID-19 [place] Blood Type A Positive Antibody Screen NEGATIVE 08/22/20 05:40 WBC RBC Hgb Hct MCV MCH MCHC RDW Plt Count MPV Immature Gran % (Auto) Neut % (Auto) Lymph % (Auto) [place] % (Auto) Eos % (Auto) Baso % (Auto) Lymph # (Auto) [place] # (Auto) Eos # (Auto) Baso # (Auto) Abs Immat Gran (auto) Absolute Neuts (auto) Absolute Nucleated RBC Nucleated RBC % (auto) Smear Tech's Comments Hold Blue Top Sodium Potassium Chloride Carbon Dioxide Anion Gap BUN Creatinine Estim Creat Clear Calc Estimated GFR Random Glucose Lactic Acid Calcium Magnesium Total Bilirubin 1.0 Direct Bilirubin 0.7 H AST 32 H D ALT 106 H Alkaline Phosphatase 157 H Troponin I High Sens Total Protein 6.3 L Albumin 3.2 L Lipase Urine Color Urine Appearance Urine pH Ur Specific [place] Urine Protein Urine Glucose (UA) Urine Ketones Urine Blood Urine Nitrite Ur Leukocyte Esterase Urine RBC Urine WBC Ur Squamous Epith Cells Urine Bacteria COVID-19 ([place]) COVID-19 [employer] Com Blood Type Antibody Screen Discharge Plan Discharge Patient Disposition: Home, Self-Care Referrals: Link Gann MD [Physician] - 2 Weeks Khurram Knox MD [Primary Care Provider] - Discharge Medications: New levofloxacin 500 mg tablet 500 mg PO DAILY Qty: 7 RF: 0 oxycodone 5 mg tablet 5 mg PO Q4H PRN (Reason: pain (scale score 7-10)) Qty: 24 RF: 0 Continued gabapentin 100 mg capsule 1 cap PO TID RF: 0 meloxicam 15 mg tablet 1 tab PO DAILY RF: 0 Discharge Orders: Discharge Order (Routine); Ordered 08/22/20 Ordered By: Link Gann Diet: low fat, low cholesterol Activity on Discharge: No heavy lifting Stand Alone Forms: Patient Portal Discharge page Activity Restrictions/Additional Instructions: If the incision area is tender, you may apply an ice pack for short intervals (No more than 20 minutes on, followed by at least 20 minutes off). Do not apply heat. Do not use creams, lotions, or topical antibiotics unless instructed to do so by your surgeon. These can cause infection or allergic reaction. Ok to shower 24 hours after your surgery. Remove bandaids in 2 days and replace. You have steri strips (small white cloth strips) covering your incision- these will fall off ~1 week. Call Your Doctor If: -Your temperature exceeds 101.5? F -You experience excessive pain or swelling -You have an unexpected reaction to medication -You have excessive bleeding -You experience continued vomiting/nausea -Your incision begins to separate -Your incision shows signs of infection such as increased redness, swelling, excessive pain, drainage (light blood or clear fluid is normal) or heat Visit Report Forms: Patient Portal Discharge page Care Plan Goals: Return to baseline health and activity following recovery period. Health Concerns: Acute cholecystitis, s/p laparoscopic cholecystectomy, gram negative flash bacteremia, UTI Plan of Treatment: Antibiotics, discharge to home, f/u in office in [address] gann
--- NOTE | 2020-08-22 10:59 | MHC.CM.PN ---
Patient has been medically cleared for dc to home today, no services. Last IMM addressed on 08/20/20.
== END 2020-08-22 13:36 | disposition home or self-care (01) | DRG 418 ==
LOC: HO.ED 16:09 → HO.EDOVER 18:20 → HO.S3 08-20 15:59
PROVIDERS: Nurse Practitioner Acute Care; Physician Assistant; Physician Assistant Surgical; Student in an Organized Health Care Education/Training Program; Admitting Provider Surgery; Emergency Provider Emergency Medicine; PCP Internal Medicine; Visit Provider Surgery
PROC: 0FT44ZZ Resection of Gallbladder, Percutaneous Endoscopic Approach (ICD-10-PCS; CPT 47562; principal; 2020-08-21 09:10)
DX: K81.0 Acute cholecystitis (principal); N39.0 Urinary tract infection, site not specified; R78.81 Bacteremia; B96.20 Unspecified Escherichia coli [E. coli] as the cause of diseases classified elsewhere; E87.6 Hypokalemia; E83.51 Hypocalcemia; Z96.651 Presence of right artificial knee joint; Z20.822 Contact with and (suspected) exposure to COVID-19; Z98.84 Bariatric surgery status; Z79.1 Long term (current) use of non-steroidal anti-inflammatories (NSAID); Z79.899 Other long term (current) drug therapy
CPT/HCPCS: 47562; 36415; 74177; 74181; 76700; 80048; 80076; 81001; 81003; 83605; 83690; 83735; 84484; 85025; 85027; 86850; 86900; 86901; 87040; 87077; 87086; 87088; 87186; 87205; 87635; 88304; 93005; 96361; 96365; 96366; 96367; 96375; 99218; 99285; J0610; J1100; J1170; J1885; J2250; J2270; J2405; J2543; J3010; J3475; Q9967

== ENCOUNTER → 2020-09-12 15:08 | Outpatient (BNVA) | payer OTHER, SELFPAY | PROVIDERS: PCP Internal Medicine; Visit Provider Surgery ==